=== PATIENT | male | born 1940 ===

== ENCOUNTER 2017-11-21 01:28 | Inpatient (IN) | payer OTHER, MEDICAID ==
[2017-11-21 02:38] LABS: BASO # 0.1 K/uL (0.0-0.2); BASO % 0.9 % (0.0-2.0); EOS # 0.5 K/uL (0.0-0.7); EOS % 9.5 % (0.0-4.0); HEMOGLOBIN 12.7 g/dL (12.0-18.0); LYMPH # 1.2 K/uL (1.0-4.3); LYMPH % 21.4 % (20.0-40.0); MEAN CELL VOLUME 93.2 fl (80.0-94.0); MEAN CORPUSCULAR HEMOGLOBIN 30.8 pg (27.0-31.0); MEAN CORPUSCULAR HGB CONC 33.1 g/dL (33.0-37.0); MEAN PLATELET VOLUME 10.1 fl (7.2-11.7); MONO # 0.5 K/uL (0.0-0.8); MONO % 8.1 % (0.0-10.0); NEUT # 3.4 K/uL (1.8-7.0); NEUT % 60.1 % (50.0-75.0); RBC 4.13 Mil/uL (4.40-5.90); RED CELL DISTRIBUTION WIDTH 13.8 % (11.5-14.5); WHITE BLOOD COUNT 5.7 K/uL (4.8-10.8)
[2017-11-21 02:54] LABS: ACETAMINOPHEN < 10.0 ug/ml (10.0-30.0); SALICYLATE < 1.0 mg/dl
[2017-11-21 02:55] LABS: BLOOD UREA NITROGEN 28 mg/dl (9-20); CALCIUM 9.4 mg/dL (8.4-10.2); GFR AFRICAN-AMERICAN > 60; GFR NON-AFRICAN AMERICAN 54
--- NOTE | 2017-11-21 03:20 | ED PDOC ---
HPI: Psych/Substance Abuse Time Seen by Provider: 11/21/17 01:38 Chief Complaint (Nursing): Altered Mental Status Chief Complaint (Provider): Psychiatric Evaluation History Per: EMS History/Exam Limitations: clinical condition (Patient has dementia) Suicide/Self Injury Attempted (Context): None Associated Symptoms: Agitation Additional History Per: Family () Additional Complaint(s): 76 year old male brought in by EMS presents to ED for aggressive behavior at home and has a past medical history of dementia. notes that she called EMS as patient was acting uncharacteristically aggressive. Of note, patient was recently discharged from a rehabilitation facility and recently had an adjustment in his psychiatric medication (unknown what changes were made). Patient is unable to provide further history at this time due to dementia. PCP: ELDA Past Medical History Reviewed: Historical Data, Nursing Documentation, Vital Signs Vital Signs: Last Vital Signs Temp 99.0 F 11/21/17 01:48 Pulse 61 11/21/17 02:04 Resp 15 11/21/17 02:04 BP 150/52 L 11/21/17 02:04 Pulse Ox 98 11/21/17 02:04 - Medical History PMH: Alzheimer's Disease, Dementia, HTN - Family History Family History: States: Unknown Family Hx - Living Arrangements Living Arrangements: With Family - Home Medications Home Medications: Ambulatory Orders Medication Instructions Recorded Aspirin [Ecotrin] 81 mg PO DAILY 11/21/17 Atorvastatin [Lipitor] 10 mg PO HS 11/21/17 Divalproex [Depakote DR(*BID*)] 125 mg PO BID 11/21/17 Docusate [Colace] 200 mg PO DAILY 11/21/17 Escitalopram [Lexapro] 10 mg PO HS 11/21/17 GlipiZIDE [Glucotrol] 5 mg PO BID 11/21/17 Memantine [Namenda] 10 mg PO Q12 11/21/17 Olmesartan/Hydrochlorothiazide 1 tab PO DAILY 11/21/17 [Olmesartan-Hctz 40-25 mg Tab] QUEtiapine [SEROquel] 50 mg PO DAILY 11/21/17 QUEtiapine [Seroquel] 100 mg PO HS 11/21/17 - Allergies Allergies/Adverse Reactions: Allergies Allergy/AdvReac Type Severity Reaction Status Date / Time No Known Allergies Allergy Verified 07/11/14 08:21 Review of Systems Review Of Systems: ROS cannot be obtained secondary to pt's inabilty to answer questions. (Patient has dementia) Physical Exam - Reviewed Nursing Documentation Reviewed: Yes Vital Signs Reviewed: Yes - Physical Exam Appears: Positive for: Non-toxic, No Acute Distress Head Exam: Positive for: ATRAUMATIC, NORMOCEPHALIC Skin: Positive for: Normal Color, Warm, Dry Eye Exam: Positive for: EOMI, Normal appearance, PERRL ENT: Positive for: Normal ENT Inspection Neck: Positive for: Normal, Painless ROM, Supple Cardiovascular/Chest: Positive for: Regular Rate, Rhythm. Negative for: Bradycardia Respiratory: Positive for: Normal Breath Sounds. Negative for: Respiratory Distress Gastrointestinal/Abdominal: Positive for: Normal Exam, Soft. Negative for: Tenderness Extremity: Positive for: Normal ROM. Negative for: Deformity Neurologic/Psych: Positive for: Alert. Negative for: Oriented (Confused but cooperative), Motor/Sensory Deficits - Laboratory Results Result Diagrams: 11/21/17 02:24 11/21/17 02:24 - ECG ECG: Positive for: Interpreted By Me, Viewed By Me ECG Rhythm: Positive for: Sinus Rhythm Interpretation Of Abn EKG: Flattening of T waves in inferior leads Rate: 64 O2 Sat by Pulse Oximetry: 98 (RA) Pulse Ox Interpretation: Normal Medical Decision Making Medical Decision Makin Initial impression: aggressive behavior at home possibly due to underlying dementia Patient well appearing, calm, coopeartive but confused, likely his baseline given dementia Initial plan: * EKG * Acetaminophen * EtOH serum * Labs * UDrug screen * Salicylate * CXR * UA 0300 Resting comfortably, no changes 0600 Crisis eval underway [address] Dennison pending crisis eval and urine studies. ~ Scribe Attestation: Documented by Jeimy Naylor, acting as a scribe for Jarad Paige MD. Provider Scribe Attestation: All medical record entries made by the Scribe were at my direction and personally dictated by me. I have reviewed the chart and agree that the record accurately reflects my personal performance of the history, physical exam, medical decision making, and the department course for this patient. I have also personally directed, reviewed, and agree with the discharge instructions and disposition. Disposition - Clinical Impression Clinical Impression: Agitation - Patient ED Disposition Is Patient to be Admitted: Transfer of Care - Disposition Disposition: Transfer of Care Disposition Time: 07:00 Condition: CRITICAL Forms: [facility] (Serbian) Patient Signed Over To: Ramo Dennison Handoff Comments: pending crisis eval and urine studies
[2017-11-21 07:07] LABS: SQUAMOUS EPITHIAL < 1 /hpf (0-5); URINE BILIRUBIN NEGATIVE (NEGATIVE); URINE BLOOD NEGATIVE (NEGATIVE); URINE CLARITY CLEAR (Clear); URINE COLOR STRAW (YELLOW); URINE GLUCOSE (UA) NEG (Normal); URINE LEUKOCYTE ESTERASE NEG Leu/uL (Negative); URINE PROTEIN NEGATIVE (NEGATIVE); URINE UROBILINOGEN 0.2-1.0 mg/dL (0.2-1.0)
--- NOTE | 2017-11-21 07:23 | ED PDOC ---
- Laboratory Results Result Diagrams: 11/21/17 02:24 11/21/17 02:24 - ECG O2 Sat by Pulse Oximetry: 98 (RA) Pulse Ox Interpretation: Normal - Progress ED Course And Treament: 1446: Stable. Crisis will admit pt. Medically stable for admit. Medical Decision Making Medical Decision Making: Time: 07 Patient signed out to me pending crisis eval and urine studies. 0902: Stable. Pending crisis eval. 1100: Pt. aggressive and threat to self and staff. Will restraint and give ativan/haldol. 1-1. Crisis will eval. Time: 925 CXR FINDINGS: LUNGS: Low-normal lung volumes -less than before. The chin and neck soft tissues obscure each lung apex. No interval consolidation or gross mass appreciated PLEURA: No significant pleural effusion identified, no pneumothorax apparent. CARDIOVASCULAR: Mild cardiomegaly Atherosclerotic vascular calcifications present. . Sternotomy and coronary artery bypass changes noted -sternal discontinuous wires renoted OSSEOUS STRUCTURES: Thoracic spondylosis VISUALIZED UPPER ABDOMEN: Normal. OTHER FINDINGS: None. IMPRESSION: No active disease. Time: 1400 Patient's family at bedside and report he has been complaining of right foot pain. Upon exam, no wounds noted to foot. No deformity, tenderness, ecchymosis, edema noted. DP Pulse 2+ bilaterally. Calf refill < 2 seconds. Scribe Attestation: Documented by Fiordaliza Slaughter acting as a scribe for Ramo Dennison MD Provider Attestation: All medical record entries made by the Scribe were at my direction and personally dictated by me. I have reviewed the chart and agree that the record accurately reflects my personal performance of the history, physical exam, medical decision making, and the department course for this patient. I have also personally directed, reviewed, and agree with the discharge instructions and disposition. Disposition - Clinical Impression Clinical Impression: Dementia - POA Present On Arrival: None - Disposition Disposition: Admitted as In-Patient Disposition Time: 14:00 Condition: FAIR
[2017-11-21 07:36] LABS: BARBITURATES, UR NEGATIVE (NEGATIVE); BENZODIAZEPINES, UR NEGATIVE (NEGATIVE); OPIATES, UR NEGATIVE (NEGATIVE); PHENCYCLIDINE, UR NEGATIVE (NEGATIVE)
--- NOTE | 2017-11-21 09:36 | RAD ---
HISTORY: aggressive behavior COMPARISON: 07/11/2014 FINDINGS: LUNGS: Low-normal lung volumes -less than before. The chin and neck soft tissues obscure each lung apex. No interval consolidation or gross mass appreciated PLEURA: No significant pleural effusion identified, no pneumothorax apparent. CARDIOVASCULAR: Mild cardiomegaly Atherosclerotic vascular calcifications present. . Sternotomy and coronary artery bypass changes noted -sternal discontinuous wires renoted OSSEOUS STRUCTURES: Thoracic spondylosis VISUALIZED UPPER ABDOMEN: Normal. OTHER FINDINGS: None. IMPRESSION: No active disease.
--- NOTE | 2017-11-21 09:49 | CARD ---
APPROVED REPORT EKG Measurement Heart [id number] <Conclusion> Normal sinus rhythm Inferior infarct, age undetermined Abnormal ECG
[2017-11-21] MEDS ORDERED: Magnesium Hydroxide Susp 30 ml UD PO PRN (17:26)
[2017-11-21] MEDS ORDERED: Alum-Mag Hydrox-Simethicone Susp (30 mL) PO PRN (17:26)
--- NOTE | 2017-11-21 18:09 | PCM.BM ---
<ManojstanislawVashti Tyrone - Last Filed: 11/21/17 18:07> Treatment Plan Problems - Problems identified on initial assessmt AGGRESSION Date Initiated: 11/21/17 Time Initiated: 18:08 Assessment reference: HP, PE, NA Status: Active Priority: 1 Treatment assets and liabiliti Patient Assests: good support system Patient Liabilities: medical problems, imparied memory, language/speech - Milieu Protocol Maintain good personal hygiene: every shift Encourage regular showers, every shift Remind patient to perform daily oral care, every shift Assist patient to perform ADL's Maintain personal safety: every shift Educate patient to report safety concerns to staff, every shift Monitor environment for contraband/sharps Medication safety: Monitor for expected outcome, potential side effects: every shift, Assess barriers to learning: every shift, Assess readiness for medication education: every shift Family Contact Family contact name: AVIS - Outside Agency [facility] Care involvment: Other Agency contact name: [phone] dR Crespo <Lisette Meek - Last Filed: 11/22/17 09:32> - Diagnosis (1) Dementia with behavioral disturbance Status: Acute Interventions: Medication management, Individual and group therapy, Psychoeducation 11/22/17 09:33 <Harika Burnette M - Last Filed: 11/22/17 15:12> Family Contact Family involvement: Family/SO is involved Family contact: Patient agrees to contact Family contact name: Avis - spouse and POA Family contacted how many times per week?: 2 Family contact comment: [phone] (cell). [phone] (home) - Outside Agency [facility] Care involvment: Following patient during stay, Information-sharing, Other Agency contact number: [phone] - Goals for Treatment Patient goals for treatment: Pt to be encouraged to attend activity and clinical groups 3-5x per week to identify at least 2 contributing factors to increased agitation, irritability, and aggression. Psycho-education to be provided to patient/family regarding benefits of medications and treatment adherence. Pt to be encouraged to participate in group milieu to develop effective coping skills to reduce aggression and reduce psychiatric hospitalizations. Coordinate discharge resource needs by providing referral for psychiatric treatment follow up in the community. Discharge/Continuing Care - Education Needs Education Needs: Family Medication, Family Diagnosis/Disease Process, Family Coping Skills, Family Anger Management skills, Family Placement options, Family Community resources, Family Activities of Daily Living, Family Uses of Medical Equipment, Family Personal Hygiene/Grooming, Family Aftercare Safety Plan, Patient Medication, Patient Diagnosis/Disease Process, Patient Coping Skills, Patient Anger Management skills, Patient Placement options, Patient Community resources, Patient Activities of Daily Living, Patient Uses of Medical Equipment , Patient Personal Hygiene/Grooming, Patient Aftercare Safety Plan - Discharge Discharge Criteria: Tolerates medication w/o severe side effects, Free of agitation, Normal sleep pattern, Ability to care for self, Reduction of target symptoms Discharge to:: With Family - Additional Comments 11/22/17 15:10 Pt discussed in team meeting. Pt refused to attend team meeting. Pt has a POA, Spouse (Avis). Pt's reason for hospitalization reviewed and discussed. Pt's medications reviewed. Pt's social and medical issues reviewed. Tx plan reviewed. Spouse to be contacted for collateral information. Tx plan reviewed. SW to continue to follow case. - Treatment Team Participation Discussed with Family/SO: No Was Patient/Family/SO present at Treatment Team Meeting: Yes
[2017-11-21] MEDS ORDERED: DiphenhydrAMINE 50 mg/ml Inj IM PRN (19:39)
[2017-11-21] MEDS: Divalproex 125 mg Sprinkle Capsule PO SCH (19:47)
[2017-11-22] MEDS ORDERED: DiphenhydrAMINE 50 mg/ml Inj IM SCH (01:00)
[2017-11-22 07:25] LABS: IRON 74 ug/dL (49-181)
[2017-11-22 07:39] LABS: % IRON SATURATION 23 % (20-55); TOTAL IRON BINDING CAPACITY 318 ug/dL (250-450)
[2017-11-22 07:42] LABS: T4 7.54 ug/dl (5.5-11.0)
[2017-11-22 07:59] LABS: FERRITIN 30.5 ng/Ml (17.9-464)
[2017-11-22] MEDS: Divalproex 125 mg Sprinkle Capsule PO SCH (08:44)
--- NOTE | 2017-11-22 09:33 | PCM.PSYCH ---
Initial Psychiatric Evaluation - Initial Psychiatric Evaluation Type of Admission: Voluntary Legal Status: DPOA Chief Complaint (in patient's own words): Worsening behavioral disturbances Patient's Reaction to Hospitalization: Patient is a poor historian due to cognitive impairment. History obtained from chart and patient's . HPI: 76 y/o male with a diagnosis of Dementia, BIB EMS to worsening aggressive behavior, throwing away his medications, collecting picture frames, not sleeping at night. In the ER he was acutely agitated requiring PRM medications and 4 point restraint. Refrigerator Car Icer spoke with patient's Avis Rockwell [phone] / [phone], who confirmed patient's aggressive behaviors. She believes that the Seroquel he took in the past made him worse. She gave senior writer permission to modify his medications as medically and psychiatrically indicated. PMHx/PPHx: DM, HLD, CAD, Constipation, Dementia; H/o admission to [facility] ALL: NKDA SHx: Lives w/ ; no acute drug/etoh abuse Current Medications: Active Medications Generic Name Dose Route Start Last Admin Trade Name Freq PRN Reason Stop Dose Admin Acetaminophen 650 mg 11/21/17 17:26 Tylenol 325mg Tab PO Q4 PRN Pain, moderate (4-7) Al Hydrox/Mg Hydrox/Simethicone 30 ml 11/21/17 17:26 Maalox Plus 30 Ml PO Q4 PRN Dyspepsia Diphenhydramine HCl 50 mg 11/21/17 19:38 11/21/17 23:43 Benadryl PO 50 mg Q8 PRN Administration for aggitation and anxiety Diphenhydramine HCl 50 mg 11/21/17 19:39 Benadryl IM Q8 PRN anxiety and aggitation Divalproex Sodium 250 mg 11/21/17 17:45 11/22/17 08:44 Depakote Sprinkles PO 250 mg BID CHRISTINE Administration Haloperidol 2 mg 11/21/17 17:36 Haldol PO Q8 PRN AGGITATION AND ANXIETY Haloperidol Lactate 2 mg 11/21/17 17:31 Haldol IM Q8 PRN anxiety and aggitation Lorazepam 1 mg 11/21/17 17:26 11/21/17 23:43 Ativan PO 12/06/17 01:01 1 mg Q8 PRN Administration Anixety/Agitation Lorazepam 1 mg 11/21/17 17:33 Ativan IM PRN PRN anxiety and AGGITATION Magnesium Hydroxide 30 ml 11/21/17 17:26 Milk Of Magnesia PO HS PRN Constipation Past Psychiatric History - Past Psychiatric History Pertinent Medical Hx (Current Medical&Sleep Prob, Allergies): Allergies Allergy/AdvReac Type Severity Reaction Status Date / Time No Known Allergies Allergy Verified 07/11/14 08:21 Aspirin [Ecotrin] 81 mg PO DAILY 11/21/17 Atorvastatin [Lipitor] 10 mg PO HS 11/21/17 Divalproex [Depakote DR(*BID*)] 125 mg PO BID 11/21/17 Docusate [Colace] 200 mg PO DAILY 11/21/17 Escitalopram [Lexapro] 10 mg PO HS 11/21/17 GlipiZIDE [Glucotrol] 5 mg PO BID 11/21/17 Memantine [Namenda] 10 mg PO Q12 11/21/17 Olmesartan/Hydrochlorothiazide [Olmesartan-Hctz 40-25 mg Tab] 1 tab PO DAILY QUEtiapine [SEROquel] 50 mg PO DAILY 11/21/17 QUEtiapine [Seroquel] 100 mg PO HS 11/21/17 Review of Systems - Psychiatric Psychiatric: As Per HPI, Abnormal Sleep Pattern, Behavioral Changes, Difficulty Concentrating, Memory Loss, Mood Swings Mental Status Examination - Personal Presentation Personal Presentation: Looks stated age - Affect Affect: Broad, Other (Inappropriately happy at times) - Motor Activity Motor Activity: Psychomotor Agitation - Reliability in Providing Information Reliability in Providing Information: Poor, due to cognitve impairment - Speech Speech: Disorganized, Irrelevant, Tangential - Mood Mood: Neutral - Formal Thought Process Formal Thought Process: Loosening of associations - Hallucinations/Delusions Additional comments: Denies AH/VH/paranoia - Obsessions/Compulsions Obsessions: No Compulsions: No - Cognitive Functions Orientation: Person Sensorium: Alert Attention/Concentration: Easily distracted Judgement: Imparied, as evidence by: Poor judgement, Imparied, as evidence by: Lack of insight into illness Memory: Recent impaired, as evidence by: Inability to recall events of the day, Recent imparied as evidence by:Inability to complete 3/3 object recall, Remote impaired as evidenced by: Inability to recall sig life events, Remote impaired as evidenced by: Inability to recall historical events - Risk Risk: Diminished functioning, Other (Aggresive towards others) - Strength & Assets Inventory Strength & Assets Inventory: Family support DSM 5 DX - DSM 5 DSM 5 Diagnosis: Dementia with behavioral disturbances - Recommended/Plan of Treatment Treatment Recommendations and Plan of Treatment: Dementia with behavioral disturbances -Admit to psychiatry unit -Case discussed w/ POA -Start Depakote; will check VPA level in 5 days -Will not restart Seroquel, as POA believe this caused worsening behavioral issues -Individual and group therapy -Medicine consult -Psychology consult -Disposition planning Projected ELOS: 5-10 days Discharge Plan and Discharge Criteria: Discharge when patient is psychiatrically stable
[2017-11-22] MEDS ORDERED: Divalproex 125 mg Sprinkle Capsule PO SCH (13:00)
--- NOTE | 2017-11-22 14:48 | CP.PCM.CON ---
History of Present Illness - History of Present Illness History of Present Illness: 76 y/o male with PMH of CABG, HTN, DM type II, dementia with behavioral problems , dyslipidemia brought to ER by EMS for crisis eval for aggressive behaviour. Patient is demented and unable to provide any history . As per patient has been more aggressive lately , not sleeping ,much and not taking his pills. Patient unable to provide any history due to advanced dementia. Allergies ; NKDA PMH ; CABG, HTN, DM type II, dementia with behavioral problems, dyslipidemia Medications; See med rec Surgery ; CABG Family history ; None Social history ; Lives with , no toxic habits ROS ; Unable to obtain since patient is severely demented Past Patient History - Tetanus Immunizations Tetanus Immunization: Unknown - Past Medical History & Family History Past Medical History?: Yes - Past Social History Smoking Status: Never Smoked Chewing Tobacco Use: No Cigar Use: No Alcohol: None Home Situation {Lives}: With Family Domestic Violence: Negative - CARDIAC Hx Cardiac Disorders: No Hx Hypertension: Yes - PULMONARY Hx Respiratory Disorders: No Hx Tuberculosis: No - NEUROLOGICAL Hx Neurological Disorder: Yes HX Cerebrovascular Accident: No Hx Dementia: Yes Hx Seizures: No - HEENT Hx HEENT Problems: No - RENAL Hx Chronic Kidney Disease: No - ENDOCRINE/METABOLIC Hx Diabetes Mellitus Type 2: Yes - HEMATOLOGICAL/ONCOLOGICAL Hx Blood Disorders: No Hx Cancer: No Hx Human Immunodeficiency Virus (HIV): No - INTEGUMENTARY Hx Dermatological Problems: No - MUSCULOSKELETAL/RHEUMATOLOGICAL Hx Musculoskeletal Disorders: No Hx Falls: No - GASTROINTESTINAL Hx Gastrointestinal Disorders: No - GENITOURINARY/GYNECOLOGICAL Hx Genitourinary Disorders: No Hx Sexually Transmitted Disorders: No - PSYCHIATRIC Hx Substance Use: No - SURGICAL HISTORY Hx Surgeries: Yes Other/Comment: Open heart surgery - ANESTHESIA Hx Anesthesia: Yes Hx Anesthesia Reactions: No Meds Allergies/Adverse Reactions: Allergies Allergy/AdvReac Type Severity Reaction Status Date / Time No Known Allergies Allergy Verified 07/11/14 08:21 - Medications Medications: Current Medications Acetaminophen (Tylenol 325mg Tab) 650 mg PO Q4 PRN PRN Reason: Pain, moderate (4-7) Al Hydrox/Mg Hydrox/Simethicone (Maalox Plus 30 Ml) 30 ml PO Q4 PRN PRN Reason: Dyspepsia Aspirin (Ecotrin) 81 mg PO DAILY CHRISTINE Last Admin: 11/22/17 13:39 Dose: 81 mg Atorvastatin Calcium (Lipitor) 10 mg PO HS [facility] Diphenhydramine HCl (Benadryl) 50 mg PO Q8 PRN PRN Reason: for aggitation and anxiety Last Admin: 11/21/17 23:43 Dose: 50 mg Diphenhydramine HCl (Benadryl) 50 mg IM Q8 PRN PRN Reason: anxiety and aggitation Divalproex Sodium (Depakote Dr(*Bid*)) 250 mg PO DAILY [facility] Divalproex Sodium (Depakote Dr(*Bid*)) 500 mg PO DAILY@1700 [facility] Docusate Sodium (Colace) 200 mg PO DAILY [facility] Last Admin: 11/22/17 13:39 Dose: 200 mg Donepezil HCl (Aricept) 5 mg PO HS [facility] Glipizide (Glucotrol) 5 mg PO BID [facility] Haloperidol Lactate (Haldol) 2 mg IM Q8 PRN PRN Reason: anxiety and aggitation Hydrochlorothiazide (Hydrodiuril) 25 mg PO DAILY [facility] Lorazepam (Ativan) 0.5 mg PO Q4 PRN PRN Reason: Agitation Lorazepam (Ativan) 1 mg IM Q6 PRN PRN Reason: Agitation Losartan Potassium (Cozaar) 100 mg PO DAILY [facility] Magnesium Hydroxide (Milk Of Magnesia) 30 ml PO HS PRN PRN Reason: Constipation Memantine (Namenda) 10 mg PO BID [facility] Last Admin: 11/22/17 13:39 Dose: 10 mg Risperidone (Risperdal M-Tab) 0.5 mg PO Q12 PRN PRN Reason: Agitation Trazodone HCl (Desyrel) 50 mg PO HS PRN PRN Reason: Insomnia Physical Exam - Constitutional Appears: Non-toxic, No Acute Distress, Other (demented) - Head Exam Head Exam: ATRAUMATIC, NORMAL INSPECTION, NORMOCEPHALIC - Eye Exam Eye Exam: EOMI, Normal appearance, PERRL Pupil Exam: NORMAL ACCOMODATION - ENT Exam ENT Exam: Mucous Membranes Moist, Normal Exam - Neck Exam Neck exam: Positive for: Normal Inspection - Respiratory Exam Respiratory Exam: Clear to Auscultation Bilateral, NORMAL BREATHING PATTERN. absent: Rales, Rhonchi, Wheezes - Cardiovascular Exam Cardiovascular Exam: REGULAR RHYTHM, RRR, +S1, +S2. absent: JVD - GI/Abdominal Exam GI & Abdominal Exam: Normal Bowel Sounds, Soft. absent: Distended, Guarding, Rebound, Tenderness - Rectal Exam Rectal Exam: Deferred - Extremities Exam Extremities exam: Positive for: normal capillary refill, normal inspection, pedal pulses present. Negative for: calf tenderness, pedal edema - Neurological Exam Neurological exam: Alert, CN II-XII Intact Additional comments: awake, demented ., moves all extremities, gait is stable - Psychiatric Exam Psychiatric exam: Agitated - Skin Skin Exam: Dry, Normal Color, Warm Results - Vital Signs Recent Vital Signs: Last Vital Signs Temp 97.1 F L 11/22/17 05:50 Pulse 64 11/22/17 05:50 Resp 19 11/22/17 05:50 BP 145/56 L 11/22/17 05:50 Pulse Ox 100 11/21/17 16:11 - Labs Result Diagrams: 11/21/17 02:24 11/21/17 02:24 Labs: Laboratory Results - last 24 hr 11/21/17 11/22/17 11/22/17 14:36 06:30 06:30 POC Glucose (mg/dL) 134 H Hemoglobin A1c Iron TIBC % Saturation Ferritin 30.5 Triglycerides 182 H Cholesterol 175 LDL Cholesterol Direct 93 HDL Cholesterol 33 Vitamin B12 638 Free T4 1.00 Thyroxine (T4) 7.54 TSH 3rd Generation 3.97 11/22/17 11/22/17 06:30 06:30 POC Glucose (mg/dL) Hemoglobin A1c 7.8 H D Iron 74 TIBC 318 % Saturation 23 Ferritin Triglycerides Cholesterol LDL Cholesterol Direct HDL Cholesterol Vitamin B12 Free T4 Thyroxine (T4) TSH 3rd Generation Assessment & Plan - Assessment and Plan (Free Text) Assessment: 76 y/o male with PMH of CABG, HTN, DM type II, dementia with behavioral problems , dyslipidemia brought to ER by EMS for crisis eval for aggressive behaviour. Patient is demented and unable to provide any history . As per patient has been more aggressive lately , not sleeping ,much and not taking his pills. Patient unable to provide any history due to advanced dementia. 1. Dementia with behavioral problems management as per psych TSH - wnl 2. DM type II controlled diabetic diet, accuchecks, lispro slinding sclae Resume Glucotrol Hgb A1c 7.8 3. HTN resume home meds 4. CAD s/p CABG continue statin , ASA , BP meds 5.Dyslipidemia on Statin 6. DVT prophylaxis ambulatory in unit
[2017-11-22] MEDS: Risperidone M tab 0.5MG PO PRN ×2 (15:10→15:12)
[2017-11-22] MEDS ORDERED: Divalproex 500 mg DR(BID formulation) PO SCH (17:00)
[2017-11-22 17:27] LABS: FOLATE 9.9 ng/mL
[2017-11-22] MEDS: Insulin Lispro (humaLOG) 100 Units/ml Inj SC SCH (22:49)
[2017-11-23] MEDS: Insulin Lispro (humaLOG) 100 Units/ml Inj SC SCH ×4 (09:00→22:40)
[2017-11-23] MEDS ORDERED: Divalproex 250 mg DR(BID formulation) PO SCH (09:00)
--- NOTE | 2017-11-23 15:19 | PCM.PYCHPN ---
Psychiatric Progress Note - Psychiatric Progress Note Patient seen today, length of contact: chart reviewed case discussed with team pt evaluated Patient Chief Complaint: pt is on one to one for behavioral issues, required prns during night, currently resting, pt seen by family, assisted with bathing, staff report may be cheeking rx/possible chewing of depakote tablets, pt is reported that at times trying to get out of unit, requires redirection Problems Identified/Issues Discussed: alteration in cognition alteration in safety Medical Problems: per chart, pt seen by hospitalist Diagnostic Results: per psychiatry' per medicine per nursing per social work per chart DSM 5 Symptoms Update: alteration in cognition, mood, behavior, safety Medication Change: Yes (depakote sprinkles 250mg po am and 500mg po hs) Medical Record Reviewed: Yes Consults ordered or reviewed: pt seen by hospitalist Mental Status Examination - Cognitive Function Memory: Impaired Attention: Poor Concentration: Poor Association: Loose Fund of Knowledge: Poor Decription of patient's judgement and insights: impaired - Mood Mood: Neutral - Affect Affect: Broad, Other (Inappropriately happy at times) - Formal Thought Process Formal Thought Process: Loosening of associations Goal/Treatment Plan - Goal/Treatment Plan Need for Continued Stay: Remain at risks for inpatient hospitalization, Failed transitioning, Severe functional impairment Progress Toward Problem(s) and Goals/Treatment Plan: inpt milieu vital signs and clinical observation per protocol and per status will re attempt depakote sprinkles for adherence 250mg po tid 1 to 1 for safety discharge planning in progress Estimated Date of D/C: 11/29/17 - Smoking Cessation Smoking Cessation Initiated: No
[2017-11-23] MEDS: Divalproex 125 mg Sprinkle Capsule PO SCH (19:19)
[2017-11-23] MEDS: Risperidone M tab 0.5MG PO PRN (19:19)
[2017-11-24] MEDS: Insulin Lispro (humaLOG) 100 Units/ml Inj SC SCH ×4 (08:32→21:11)
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
[2017-11-24] MEDS: Divalproex 125 mg Sprinkle Capsule PO SCH ×5 (12:19→19:45)
[2017-11-24] MEDS: Risperidone M tab 0.5MG PO SCH (21:01)
[2017-11-25] MEDS: Divalproex 125 mg Sprinkle Capsule PO SCH ×2 (08:42→18:44)
[2017-11-25] MEDS: Risperidone M tab 0.5MG PO SCH ×2 (08:50→21:08)
[2017-11-25] MEDS: Insulin Lispro (humaLOG) 100 Units/ml Inj SC SCH ×4 (08:55→22:17)
--- NOTE | 2017-11-25 09:27 | PCM.PYCHPN ---
Psychiatric Progress Note - Psychiatric Progress Note Patient seen today, length of contact: Patient evaluated, chart reviewed, case discussed with team Patient Chief Complaint: Worsening behavioral disturbances Problems Identified/Issues Discussed: Patient continues to have chronic memory deficits due to dementia. Over the weekend he had several incidents of agitation. He is currently calm w/ health technical writer , but continues to be labile and disoriented. Medication Change: Yes (Increase Depakote) Medical Record Reviewed: Yes Consults ordered or reviewed: Medicine consult Mental Status Examination - Cognitive Function Orientation: Person Memory: Impaired Attention: Poor Concentration: Poor Association: Loose Fund of Knowledge: Poor Decription of patient's judgement and insights: Poor I/J - Mood Mood: Neutral - Affect Affect: Other (Labile) - Formal Thought Process Formal Thought Process: Loosening of associations Psychotic Thoughts and Behaviors: No acute AH/VH/paranoia/delusions - Suicidal Ideation Suicidal Ideation: No - Homicidal Ideation Homicidal Ideation: No Goal/Treatment Plan - Goal/Treatment Plan Need for Continued Stay: Remain at risks for inpatient hospitalization, Discharge may exacerbated symptoms, Failed transitioning, Severe functional impairment Progress Toward Problem(s) and Goals/Treatment Plan: Dementia with behavioral disturbances -Increase Depakote; check VPA level -Continue Risperdal -Individual and group therapy -Medicine consult -Case discussed w/ patient's -Disposition planning Estimated Date of D/C: 11/29/17
--- NOTE | 2017-11-26 08:34 | PCM.PYCHPN ---
Psychiatric Progress Note - Psychiatric Progress Note Patient seen today, length of contact: Patient evaluated, chart reviewed, case discussed with team Patient Chief Complaint: Worsening behavioral disturbances Problems Identified/Issues Discussed: Patient continues to have periods of agitation and aggression and is difficult to redirect. He required PRN medication last night. He continues to be confused and disoriented as per his baseline due to dementia. Medication Change: Yes (Increase Risperdal) Medical Record Reviewed: Yes Consults ordered or reviewed: Medicine consult Mental Status Examination - Cognitive Function Orientation: Person Memory: Impaired Attention: Poor Concentration: Poor Association: Loose Fund of Knowledge: Poor Decription of patient's judgement and insights: Poor I/J - Mood Mood: Neutral - Affect Affect: Other (Labile) - Formal Thought Process Formal Thought Process: Loosening of associations Psychotic Thoughts and Behaviors: No acute AH/VH/paranoia/delusions - Suicidal Ideation Suicidal Ideation: No - Homicidal Ideation Homicidal Ideation: No Goal/Treatment Plan - Goal/Treatment Plan Need for Continued Stay: Remain at risks for inpatient hospitalization, Discharge may exacerbated symptoms, Failed transitioning, Severe functional impairment Progress Toward Problem(s) and Goals/Treatment Plan: Dementia with behavioral disturbances -Continue Depakote; check VPA level -Increase Risperdal -Individual and group therapy -Medicine consult -Case discussed w/ patient's -Disposition planning Estimated Date of D/C: 11/29/17
[2017-11-26] MEDS: Insulin Lispro (humaLOG) 100 Units/ml Inj SC SCH ×4 (08:42→21:04)
[2017-11-26] MEDS: Divalproex 125 mg Sprinkle Capsule PO SCH ×2 (11:29→16:13)
[2017-11-26] MEDS: Risperidone M tab 0.5MG PO SCH ×3 (11:32→19:51)
--- NOTE | 2017-11-27 08:24 | PCM.PYCHPN ---
Psychiatric Progress Note - Psychiatric Progress Note Patient seen today, length of contact: Patient evaluated, chart reviewed, case discussed with team Patient Chief Complaint: Worsening behavioral disturbances Problems Identified/Issues Discussed: Patient continues to have periods of agitation and aggression and is difficult to redirect. He required PRN medication last night. He continues to be confused and disoriented as per his baseline due to dementia. We have been unable to check VPA level due to acute agitation, will continues to try to check blood work. No adverse effects reported or observed at this time. Medication Change: No Medical Record Reviewed: Yes Consults ordered or reviewed: Medicine consult Mental Status Examination - Cognitive Function Orientation: Person Memory: Impaired Attention: Poor Concentration: Poor Association: Loose Fund of Knowledge: Poor Decription of patient's judgement and insights: Poor I/J - Mood Mood: Neutral - Affect Affect: Other (Labile) - Formal Thought Process Formal Thought Process: Loosening of associations Psychotic Thoughts and Behaviors: No acute AH/VH/paranoia/delusions - Suicidal Ideation Suicidal Ideation: No - Homicidal Ideation Homicidal Ideation: No Goal/Treatment Plan - Goal/Treatment Plan Need for Continued Stay: Remain at risks for inpatient hospitalization, Discharge may exacerbated symptoms, Failed transitioning, Severe functional impairment Progress Toward Problem(s) and Goals/Treatment Plan: Dementia with behavioral disturbances -Continue Depakote; check VPA level -Continue Risperdal -1:1 for safety -Individual and group therapy -Medicine consult -Case discussed w/ patient's -Disposition planning Estimated Date of D/C: 11/29/17
[2017-11-27] MEDS: Insulin Lispro (humaLOG) 100 Units/ml Inj SC SCH ×4 (08:55→23:09)
[2017-11-27] MEDS: Divalproex 125 mg Sprinkle Capsule PO SCH ×2 (11:10→16:57)
[2017-11-27] MEDS: Risperidone M tab 1 MG PO SCH (16:59)
[2017-11-27] MEDS ORDERED: Risperidone M tab 0.5MG PO SCH (22:00)
[2017-11-28] MEDS: Divalproex 125 mg Sprinkle Capsule PO SCH ×3 (08:48→16:48)
[2017-11-28] MEDS: Insulin Lispro (humaLOG) 100 Units/ml Inj SC SCH ×4 (08:51→23:30)
--- NOTE | 2017-11-28 09:59 | PCM.PYCHPN ---
Psychiatric Progress Note - Psychiatric Progress Note Patient seen today, length of contact: Patient evaluated, chart reviewed, case discussed with team Patient Chief Complaint: Worsening behavioral disturbances Problems Identified/Issues Discussed: Patient continues to have periods of agitation and aggression and is difficult to redirect at times. He required PRN medication last night. He continues to be confused and disoriented as per his baseline due to dementia. VPA level was 40.2 on 11/27/17. No adverse effects reported or observed at this time. Diagnostic Results: VPA 40.2 on 11/27/17 Medication Change: Yes (Increase Depakote; Increase Risperdal) Medical Record Reviewed: Yes Consults ordered or reviewed: Medicine consult Mental Status Examination - Cognitive Function Orientation: Person Memory: Impaired Attention: Poor Concentration: Poor Association: Loose Fund of Knowledge: Poor Decription of patient's judgement and insights: Poor I/J - Mood Mood: Neutral - Affect Affect: Other (Labile) - Formal Thought Process Formal Thought Process: Loosening of associations Psychotic Thoughts and Behaviors: No acute AH/VH/paranoia/delusions - Suicidal Ideation Suicidal Ideation: No - Homicidal Ideation Homicidal Ideation: No Goal/Treatment Plan - Goal/Treatment Plan Need for Continued Stay: Remain at risks for inpatient hospitalization, Discharge may exacerbated symptoms, Failed transitioning, Severe functional impairment Progress Toward Problem(s) and Goals/Treatment Plan: Dementia with behavioral disturbances -Increase Depakote; VPA 40.2 on 11/27/17 -Increase Risperdal -1:1 for safety -Individual and group therapy -Medicine consult -Case discussed w/ patient's -Disposition planning Estimated Date of D/C: 12/03/17
[2017-11-28] MEDS: Risperidone M tab 1 MG PO SCH (16:51)
[2017-11-28] MEDS ORDERED: Risperidone M tab 1 MG PO SCH (22:00)
[2017-11-29] MEDS: Insulin Lispro (humaLOG) 100 Units/ml Inj SC SCH ×4 (09:27→21:02)
--- NOTE | 2017-11-29 11:54 | PCM.PYCHPN ---
Psychiatric Progress Note - Psychiatric Progress Note Patient seen today, length of contact: Patient evaluated, chart reviewed, case discussed with team Patient Chief Complaint: Worsening behavioral disturbances Problems Identified/Issues Discussed: Patient continues to have periods of agitation and aggression. He required PRN medication last night. He continues to be confused and disoriented as per his baseline due to dementia. No adverse effects reported or observed at this time. Diagnostic Results: VPA 40.2 on 11/27/17 Medication Change: Yes (Ativan 0.5 mg PO HS) Medical Record Reviewed: Yes Consults ordered or reviewed: Medicine consult Mental Status Examination - Cognitive Function Orientation: Person Memory: Impaired Attention: Poor Concentration: Poor Association: Loose Fund of Knowledge: Poor Decription of patient's judgement and insights: Poor I/J - Mood Mood: Neutral - Affect Affect: Other (Labile) - Formal Thought Process Formal Thought Process: Loosening of associations Psychotic Thoughts and Behaviors: No acute AH/VH/paranoia/delusions - Suicidal Ideation Suicidal Ideation: No - Homicidal Ideation Homicidal Ideation: No Goal/Treatment Plan - Goal/Treatment Plan Need for Continued Stay: Remain at risks for inpatient hospitalization, Discharge may exacerbated symptoms, Failed transitioning, Severe functional impairment Progress Toward Problem(s) and Goals/Treatment Plan: Dementia with behavioral disturbances -Continue Depakote; VPA 40.2 on 11/27/17 -Continue Risperdal -Ativan 0.5 mg PO HS -1:1 for safety -Individual and group therapy -Medicine consult -Case discussed w/ patient's -Disposition planning Estimated Date of D/C: 12/03/17
--- NOTE | 2017-11-29 15:45 | PCM.BM ---
Treatment Plan Problems - Problems identified on initial assessmt AGGRESSION Date Initiated: 11/21/17 Time Initiated: 18:08 Assessment reference: HP, PE, NA Status: Active Priority: 1 Treatment assets and liabiliti Patient Assests: good support system Patient Liabilities: medical problems, imparied memory, language/speech - Milieu Protocol Maintain good personal hygiene: every shift Encourage regular showers, every shift Remind patient to perform daily oral care, every shift Assist patient to perform ADL's Maintain personal safety: every shift Educate patient to report safety concerns to staff, every shift Monitor environment for contraband/sharps Medication safety: Monitor for expected outcome, potential side effects: every shift, Assess barriers to learning: every shift, Assess readiness for medication education: every shift Milieu Narrative: Dementia with behavioral disturbances -Continue Depakote; VPA 40.2 on 11/27/17 -Continue Risperdal -Ativan 0.5 mg PO HS -1:1 for safety -Individual and group therapy -Medicine consult -Case discussed w/ patient's -Disposition planning Family Contact Family involvement: Family/SO is involved Family contact: Patient agrees to contact, Family has been contacted by patient , Telephone contact initiated by staff Family contact name: Avis - spouse & POA Family contacted how many times per week?: 2 Family contact comment: [phone] (cell). [phone] (home) - Outside Agency [facility] Care involvment: Following patient during stay, Information-sharing Agency contact name: [phone] [facility] Agency contact number: [phone] - Goals for Treatment Patient goals for treatment: Pt unable to state goal due to cognitive impairment. Discharge/Continuing Care - Education Needs Education Needs: Family Medication, Family Diagnosis/Disease Process, Family Coping Skills, Family Anger Management skills, Family Placement options, Family Community resources, Family Activities of Daily Living, Family Uses of Medical Equipment, Family Personal Hygiene/Grooming, Family Aftercare Safety Plan, Patient Medication, Patient Diagnosis/Disease Process, Patient Coping Skills, Patient Anger Management skills, Patient Placement options, Patient Community resources, Patient Activities of Daily Living, Patient Uses of Medical Equipment , Patient Personal Hygiene/Grooming, Patient Aftercare Safety Plan - Discharge Discharge Criteria: Tolerates medication w/o severe side effects, Free of agitation, Normal sleep pattern, Ability to care for self, Reduction of target symptoms Discharge to:: With Family - Additional Comments 11/22/17 15:10 Pt discussed in team meeting. Pt refused to attend team meeting. Pt has a POA, Spouse (Avis). Pt's reason for hospitalization reviewed and discussed. Pt's medications reviewed. Pt's social and medical issues reviewed. Tx plan reviewed. Spouse to be contacted for collateral information. Tx plan reviewed. SW to continue to follow case. - Treatment Team Participation Patient/Family/SO Statement: Dementia with behavioral disturbances -Continue Depakote; VPA 40.2 on 11/27/17 -Continue Risperdal -Ativan 0.5 mg PO HS -1:1 for safety -Individual and group therapy -Medicine consult -Case discussed w/ patient's -Disposition planning Discussed with Family/SO: No Was Patient/Family/SO present at Treatment Team Meeting: Yes Treatment Plan Review - Problem AGGRESSION Time Initiated: 18:08 - Discharge / Continuing Care Discharge to:: [facility]: Other (Pt unable to participate in team. Behaviors and mood are still being stabilized with medications, yet due to the advanced nature of pt's dementia it is doubtful that much improvement will be obtained. Pt to be referred to [facility] on a locked unit next week. )
[2017-11-29] MEDS: Divalproex 125 mg Sprinkle Capsule PO SCH (17:45)
[2017-11-29] MEDS: Risperidone M TAB 2 MG PO SCH (21:01)
[2017-11-30] MEDS: Insulin Lispro (humaLOG) 100 Units/ml Inj SC SCH ×3 (09:03→21:26)
[2017-11-30] MEDS: Divalproex 125 mg Sprinkle Capsule PO SCH ×2 (09:06→13:49)
--- NOTE | 2017-11-30 10:26 | PCM.PYCHPN ---
Psychiatric Progress Note - Psychiatric Progress Note Patient seen today, length of contact: Patient evaluated, chart reviewed, case discussed with team Patient Chief Complaint: Worsening behavioral disturbances Problems Identified/Issues Discussed: Patient continues to have periods of agitation and aggression. He required PRN medication last night. No adverse effects reported or observed at this time. Diagnostic Results: VPA 40.2 on 11/27/17 Medication Change: Yes (Increase Ativan) Medical Record Reviewed: Yes Consults ordered or reviewed: Medicine consult Mental Status Examination - Cognitive Function Orientation: Person Memory: Impaired Attention: Poor Concentration: Poor Association: Loose Fund of Knowledge: Poor Decription of patient's judgement and insights: Poor I/J - Mood Mood: Neutral - Affect Affect: Other (Labile) - Formal Thought Process Formal Thought Process: Loosening of associations Psychotic Thoughts and Behaviors: No acute AH/VH/paranoia/delusions - Suicidal Ideation Suicidal Ideation: No - Homicidal Ideation Homicidal Ideation: No Goal/Treatment Plan - Goal/Treatment Plan Need for Continued Stay: Remain at risks for inpatient hospitalization, Discharge may exacerbated symptoms, Failed transitioning, Severe functional impairment Progress Toward Problem(s) and Goals/Treatment Plan: Dementia with behavioral disturbances -Continue Depakote; VPA 40.2 on 11/27/17 -Continue Risperdal -Increase Ativan to 1 mg PO HS -1:1 for safety -Individual and group therapy -Medicine consult -Case discussed w/ patient's -Disposition planning Estimated Date of D/C: 12/03/17
[2017-11-30] MEDS: Risperidone M TAB 2 MG PO SCH (21:21)
[2017-12-01] MEDS: Divalproex 125 mg Sprinkle Capsule PO SCH ×4 (08:04→16:43)
[2017-12-01] MEDS: Insulin Lispro (humaLOG) 100 Units/ml Inj SC SCH ×4 (08:07→16:44)
--- NOTE | 2017-12-01 11:19 | PCM.PYCHPN ---
Psychiatric Progress Note - Psychiatric Progress Note Patient seen today, length of contact: Patient evaluated, chart reviewed, case discussed with team Patient Chief Complaint: Worsening behavioral disturbances Problems Identified/Issues Discussed: Patient continues to have periods of agitation and aggression. He continues to require PRN medications for acute agitation. No adverse effects reported or observed at this time. Diagnostic Results: VPA 40.2 on 11/27/17 Medication Change: Yes (Switch Ativan to Klonopin HS) Medical Record Reviewed: Yes Consults ordered or reviewed: Medicine consult Mental Status Examination - Cognitive Function Orientation: Person Memory: Impaired Attention: Poor Concentration: Poor Association: Loose Fund of Knowledge: Poor Decription of patient's judgement and insights: Poor I/J - Mood Mood: Neutral - Affect Affect: Other (Labile) - Formal Thought Process Formal Thought Process: Loosening of associations Psychotic Thoughts and Behaviors: No acute AH/VH/paranoia/delusions - Suicidal Ideation Suicidal Ideation: No - Homicidal Ideation Homicidal Ideation: No Goal/Treatment Plan - Goal/Treatment Plan Need for Continued Stay: Remain at risks for inpatient hospitalization, Discharge may exacerbated symptoms, Failed transitioning, Severe functional impairment Progress Toward Problem(s) and Goals/Treatment Plan: Dementia with behavioral disturbances -Continue Depakote; VPA 40.2 on 11/27/17 -Continue Risperdal -Switch Ativan to Klonopin HS -1:1 for safety -Individual and group therapy -Medicine consult -Case discussed w/ patient's -Disposition planning Estimated Date of D/C: 12/05/17
[2017-12-01] MEDS: Risperidone M TAB 2 MG PO SCH (21:02)
[2017-12-02] MEDS: Insulin Lispro (humaLOG) 100 Units/ml Inj SC SCH ×4 (09:31→21:19)
--- NOTE | 2017-12-02 11:40 | PCM.PYCHPN ---
Psychiatric Progress Note - Psychiatric Progress Note Patient seen today, length of contact: Patient evaluated, chart reviewed, case discussed with team Patient Chief Complaint: Behavioral disturbances Problems Identified/Issues Discussed: Patient has less behavioral disturbances. He continues to need redirection from staff due to chronic cognitive impairment. No adverse effects reported or observed at this time. Diagnostic Results: VPA 40.2 on 11/27/17 Medication Change: No Medical Record Reviewed: Yes Consults ordered or reviewed: Medicine consult Mental Status Examination - Cognitive Function Orientation: Person Memory: Impaired Attention: Poor Concentration: Poor Association: Loose Fund of Knowledge: Poor Decription of patient's judgement and insights: Poor I/J - Mood Mood: Neutral - Affect Affect: Constricted - Formal Thought Process Formal Thought Process: Loosening of associations Psychotic Thoughts and Behaviors: No acute AH/VH/paranoia/delusions - Suicidal Ideation Suicidal Ideation: No - Homicidal Ideation Homicidal Ideation: No Goal/Treatment Plan - Goal/Treatment Plan Need for Continued Stay: Remain at risks for inpatient hospitalization, Discharge may exacerbated symptoms, Failed transitioning, Severe functional impairment Progress Toward Problem(s) and Goals/Treatment Plan: Dementia with behavioral disturbances -Continue Depakote; VPA 40.2 on 11/27/17 -Continue Risperdal -Continue Klonopin -1:1 for safety -Individual and group therapy -Medicine consult -Case discussed w/ patient's -Disposition planning Estimated Date of D/C: 12/05/17
[2017-12-02] MEDS: Divalproex 125 mg Sprinkle Capsule PO SCH ×3 (16:34→16:37)
[2017-12-02] MEDS: Risperidone M TAB 2 MG PO SCH (23:29)
[2017-12-03] MEDS: Divalproex 125 mg Sprinkle Capsule PO SCH ×3 (08:53→21:01)
[2017-12-03] MEDS: Insulin Lispro (humaLOG) 100 Units/ml Inj SC SCH ×4 (08:54→21:02)
--- NOTE | 2017-12-03 09:35 | PCM.PYCHPN ---
Psychiatric Progress Note - Psychiatric Progress Note Patient seen today, length of contact: Patient evaluated, chart reviewed, case discussed with team Patient Chief Complaint: Behavioral disturbances Problems Identified/Issues Discussed: Patient has been in better behavioral control. He has been overly sleepy during the way, so will attempt to taper medications to see if patient can continues to have improved behavioral control at lower doses. No adverse effects reported or observed at this time. Diagnostic Results: VPA 40.2 on 11/27/17 Medication Change: Yes (Adrienne Travis and Riszechariahdal) Medical Record Reviewed: Yes Consults ordered or reviewed: Medicine consult Mental Status Examination - Cognitive Function Orientation: Person Memory: Impaired Attention: Poor Concentration: Poor Association: Loose Fund of Knowledge: Poor Decription of patient's judgement and insights: Poor I/J - Mood Mood: Neutral - Affect Affect: Constricted - Formal Thought Process Formal Thought Process: Loosening of associations Psychotic Thoughts and Behaviors: No acute AH/VH/paranoia/delusions - Suicidal Ideation Suicidal Ideation: No - Homicidal Ideation Homicidal Ideation: No Goal/Treatment Plan - Goal/Treatment Plan Need for Continued Stay: Remain at risks for inpatient hospitalization, Discharge may exacerbated symptoms, Failed transitioning, Severe functional impairment Progress Toward Problem(s) and Goals/Treatment Plan: Dementia with behavioral disturbances -Continue Depakote; VPA 40.2 on 11/27/17 -Adrienne Travis and Kodydal -1:1 for safety -Individual and group therapy -Medicine consult -Case discussed w/ patient's -Disposition planning Estimated Date of D/C: 12/05/17
[2017-12-04] MEDS: Insulin Lispro (humaLOG) 100 Units/ml Inj SC SCH ×4 (08:10→21:02)
--- NOTE | 2017-12-04 08:57 | PCM.PYCHPN ---
Psychiatric Progress Note - Psychiatric Progress Note Patient seen today, length of contact: Patient evaluated, chart reviewed, case discussed with team Patient Chief Complaint: Behavioral disturbances; now improved Problems Identified/Issues Discussed: Patient is at his baseline of functioning. No acute behavioral disturbance or PRN medications needed. Patient continues to have chronic deficits due to dementia. No adverse effects reported or observed at this time. Diagnostic Results: VPA 40.2 on 11/27/17 Medication Change: No Medical Record Reviewed: Yes Consults ordered or reviewed: Medicine consult Mental Status Examination - Cognitive Function Orientation: Person Memory: Impaired Attention: Poor Concentration: Poor Association: Loose Fund of Knowledge: Poor Decription of patient's judgement and insights: Poor I/J - Mood Mood: Neutral - Affect Affect: Constricted - Formal Thought Process Formal Thought Process: Loosening of associations Psychotic Thoughts and Behaviors: No acute AH/VH/paranoia/delusions - Suicidal Ideation Suicidal Ideation: No - Homicidal Ideation Homicidal Ideation: No Goal/Treatment Plan - Goal/Treatment Plan Need for Continued Stay: Severe functional impairment Progress Toward Problem(s) and Goals/Treatment Plan: Dementia with behavioral disturbances, now improved; patient is at his baseline of functioning and 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 -Continue Depakote; VPA 40.2 on 11/27/17 -Continue Klonopin and Risperdal -Individual and group therapy -Medicine consult -Case discussed w/ patient's -Disposition planning Estimated Date of D/C: 12/09/17
[2017-12-04] MEDS: Divalproex 125 mg Sprinkle Capsule PO SCH ×2 (12:14→21:01)
[2017-12-05] MEDS: Insulin Lispro (humaLOG) 100 Units/ml Inj SC SCH ×4 (08:55→21:02)
--- NOTE | 2017-12-05 09:21 | PCM.PYCHPN ---
Psychiatric Progress Note - Psychiatric Progress Note Patient seen today, length of contact: Patient evaluated, chart reviewed, case discussed with team Patient Chief Complaint: Behavioral disturbances; now improved Problems Identified/Issues Discussed: No new events. Patient is at his baseline of functioning. No acute behavioral disturbance or PRN medications needed. Patient continues to have chronic deficits due to dementia. No adverse effects reported or observed at this time. Diagnostic Results: VPA 40.2 on 11/27/17 Medication Change: No Medical Record Reviewed: Yes Consults ordered or reviewed: Medicine consult Mental Status Examination - Cognitive Function Orientation: Person Memory: Impaired Attention: Poor Concentration: Poor Association: Loose Fund of Knowledge: Poor Decription of patient's judgement and insights: Poor I/J - Mood Mood: Neutral - Affect Affect: Constricted - Formal Thought Process Formal Thought Process: Loosening of associations Psychotic Thoughts and Behaviors: No acute AH/VH/paranoia/delusions - Suicidal Ideation Suicidal Ideation: No - Homicidal Ideation Homicidal Ideation: No Goal/Treatment Plan - Goal/Treatment Plan Need for Continued Stay: Severe functional impairment Progress Toward Problem(s) and Goals/Treatment Plan: Dementia with behavioral disturbances, now improved; patient is at his baseline of functioning and is psychiatrically stable for 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 -Continue Depakote; VPA 40.2 on 11/27/17 -Continue Klonopin and Risperdal -Individual and group therapy -Medicine consult -Case discussed w/ patient's -Disposition planning Estimated Date of D/C: 12/09/17
[2017-12-05] MEDS: Divalproex 125 mg Sprinkle Capsule PO SCH ×2 (17:32→21:01)
[2017-12-06] MEDS: Insulin Lispro (humaLOG) 100 Units/ml Inj SC SCH ×4 (08:20→22:27)
--- NOTE | 2017-12-06 09:17 | PCM.PYCHPN ---
Psychiatric Progress Note - Psychiatric Progress Note Patient seen today, length of contact: Patient evaluated, chart reviewed, case discussed with team Patient Chief Complaint: Behavioral disturbances; now improved Problems Identified/Issues Discussed: No new events overnight. Patient is at his baseline of functioning. No acute behavioral disturbance or PRN medications needed. Patient continues to have chronic deficits due to dementia. No adverse effects reported or observed at this time. Diagnostic Results: VPA 40.2 on 11/27/17 Medication Change: No Medical Record Reviewed: Yes Consults ordered or reviewed: Medicine consult Mental Status Examination - Cognitive Function Orientation: Person Memory: Impaired Attention: Poor Concentration: Poor Association: Loose Fund of Knowledge: Poor Decription of patient's judgement and insights: Poor I/J - Mood Mood: Neutral - Affect Affect: Constricted - Formal Thought Process Formal Thought Process: Loosening of associations Psychotic Thoughts and Behaviors: No acute AH/VH/paranoia/delusions - Suicidal Ideation Suicidal Ideation: No - Homicidal Ideation Homicidal Ideation: No Goal/Treatment Plan - Goal/Treatment Plan Need for Continued Stay: Severe functional impairment Progress Toward Problem(s) and Goals/Treatment Plan: Dementia with behavioral disturbances, now improved; patient is at his baseline of functioning and is psychiatrically stable 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 -Continue Depakote; VPA 40.2 on 11/27/17 -Continue Klonopin and Risperdal -Individual and group therapy -Medicine consult -Case discussed w/ patient's -Disposition planning Estimated Date of D/C: 12/09/17
[2017-12-06] MEDS: Divalproex 125 mg Sprinkle Capsule PO SCH ×2 (12:18→21:03)
[2017-12-07 06:04] VITALS: O2SAT 19
[2017-12-07] MEDS: Insulin Lispro (humaLOG) 100 Units/ml Inj SC SCH ×4 (08:43→21:06)
--- NOTE | 2017-12-07 11:01 | PCM.PYCHPN ---
Psychiatric Progress Note - Psychiatric Progress Note Patient seen today, length of contact: Patient evaluated, chart reviewed, case discussed with team Patient Chief Complaint: pt has been less agitated and improving with no changes in mood and reaching his baseline tolerating meds well pt 's is c/o pt being sleeping all day and wants his meds decreased and pt becoming very agitated when pt is being washed and she appears to be in some denial regarding his behavioral agitation due to dementia. Medication Change: No Medical Record Reviewed: Yes Mental Status Examination - Cognitive Function Orientation: Person Memory: Impaired Attention: Poor Concentration: Poor Association: Loose Fund of Knowledge: Poor - Mood Mood: Neutral - Affect Affect: Constricted - Formal Thought Process Formal Thought Process: Loosening of associations - Suicidal Ideation Suicidal Ideation: No - Homicidal Ideation Homicidal Ideation: No Goal/Treatment Plan - Goal/Treatment Plan Need for Continued Stay: Severe functional impairment Progress Toward Problem(s) and Goals/Treatment Plan: will continue to stabilize pt and engage pt in therapy D/c planning as per dr alfaro Estimated Date of D/C: 12/09/17
[2017-12-07] MEDS: Divalproex 125 mg Sprinkle Capsule PO SCH ×2 (13:00→21:05)
[2017-12-08] MEDS: Insulin Lispro (humaLOG) 100 Units/ml Inj SC SCH ×5 (08:45→22:01)
[2017-12-08] MEDS: Divalproex 125 mg Sprinkle Capsule PO SCH ×2 (13:47→22:05)
--- NOTE | 2017-12-08 17:13 | PCM.PYCHPN ---
Psychiatric Progress Note - Psychiatric Progress Note Patient seen today, length of contact: Patient evaluated, chart reviewed, case discussed with team Patient Chief Complaint: pt has been less agitated except once when he got upset with the nurse but able tobcalm down and improving with no changes in mood and reaching her baseline tolerating meds well Medication Change: No Medical Record Reviewed: Yes Mental Status Examination - Cognitive Function Orientation: Person Memory: Impaired Attention: Poor Concentration: Poor Association: Loose Fund of Knowledge: Poor - Mood Mood: Neutral - Affect Affect: Constricted - Formal Thought Process Formal Thought Process: Loosening of associations - Suicidal Ideation Suicidal Ideation: No - Homicidal Ideation Homicidal Ideation: No Goal/Treatment Plan - Goal/Treatment Plan Need for Continued Stay: Severe functional impairment Progress Toward Problem(s) and Goals/Treatment Plan: will continue to stabilize pt and engage pt in therapy D/c planning as per dr alfaro Estimated Date of D/C: 12/09/17
--- NOTE | 2017-12-09 09:17 | PCM.PYCHPN ---
Psychiatric Progress Note - Psychiatric Progress Note Patient seen today, length of contact: Patient evaluated, chart reviewed, case discussed with team Patient Chief Complaint: Behavioral disturbances; now improved Problems Identified/Issues Discussed: No new events. Patient is at his baseline of functioning. No acute behavioral disturbance or PRN medications needed. Patient continues to have chronic deficits due to dementia. No adverse effects reported or observed at this time. Diagnostic Results: VPA 40.2 on 11/27/17 Medication Change: No Medical Record Reviewed: Yes Consults ordered or reviewed: Medicine consult Mental Status Examination - Cognitive Function Orientation: Person Memory: Impaired Attention: Poor Concentration: Poor Association: Loose Fund of Knowledge: Poor Decription of patient's judgement and insights: Chronic poor I/J due to dementia - Mood Mood: Neutral - Affect Affect: Constricted - Formal Thought Process Formal Thought Process: Loosening of associations Psychotic Thoughts and Behaviors: No AH/VH/paranoia - Suicidal Ideation Suicidal Ideation: No - Homicidal Ideation Homicidal Ideation: No Goal/Treatment Plan - Goal/Treatment Plan Need for Continued Stay: Severe functional impairment Progress Toward Problem(s) and Goals/Treatment Plan: Dementia with behavioral disturbances, now improved; patient is at his baseline of functioning and is psychiatrically stable for referral for [facility] placement. -Continue Depakote; VPA 40.2 on 11/27/17 -Continue Klonopin and Risperdal -Individual and group therapy -Medicine consult -Case discussed w/ patient's -Disposition planning Estimated Date of D/C: 12/10/17
[2017-12-09] MEDS: Insulin Lispro (humaLOG) 100 Units/ml Inj SC SCH ×4 (09:37→21:17)
[2017-12-09] MEDS: Divalproex 125 mg Sprinkle Capsule PO SCH ×2 (14:25→21:16)
[2017-12-10] MEDS: Insulin Lispro (humaLOG) 100 Units/ml Inj SC SCH ×4 (08:08→21:11)
--- NOTE | 2017-12-10 08:48 | PCM.PYCHPN ---
Psychiatric Progress Note - Psychiatric Progress Note Patient seen today, length of contact: Patient evaluated, chart reviewed, case discussed with team Patient Chief Complaint: Behavioral disturbances; now improved Problems Identified/Issues Discussed: No new events overnight. No 1:1 needed. Patient is at his baseline of functioning. No acute behavioral disturbance or PRN medications needed. Patient continues to have chronic deficits due to dementia. No adverse effects reported or observed at this time. Diagnostic Results: VPA 40.2 on 11/27/17 Medication Change: No Medical Record Reviewed: Yes Consults ordered or reviewed: Medicine consult Mental Status Examination - Cognitive Function Orientation: Person Memory: Impaired Attention: Poor Concentration: Poor Association: Loose Fund of Knowledge: Poor Decription of patient's judgement and insights: Chronic poor I/J due to dementia - Mood Mood: Neutral - Affect Affect: Constricted - Formal Thought Process Formal Thought Process: Loosening of associations Psychotic Thoughts and Behaviors: No AH/VH/paranoia - Suicidal Ideation Suicidal Ideation: No - Homicidal Ideation Homicidal Ideation: No Goal/Treatment Plan - Goal/Treatment Plan Need for Continued Stay: Severe functional impairment Progress Toward Problem(s) and Goals/Treatment Plan: Dementia with behavioral disturbances, now improved; patient is at his baseline of functioning and is psychiatrically stable for referral for [facility] placement. -Continue Depakote; VPA 40.2 on 11/27/17 -Continue Klonopin and Risperdal -Individual and group therapy -Medicine consult -Case discussed w/ patient's -Disposition planning Estimated Date of D/C: 12/13/17
[2017-12-10] MEDS: Divalproex 125 mg Sprinkle Capsule PO SCH ×2 (12:31→21:11)
[2017-12-11] MEDS: Insulin Lispro (humaLOG) 100 Units/ml Inj SC SCH ×4 (08:07→21:12)
--- NOTE | 2017-12-11 08:25 | PCM.PYCHPN ---
Psychiatric Progress Note - Psychiatric Progress Note Patient seen today, length of contact: Patient evaluated, chart reviewed, case discussed with team Patient Chief Complaint: Behavioral disturbances; now improved Problems Identified/Issues Discussed: No new events overnight. No 1:1 needed. Patient is at his baseline of functioning. No acute behavioral disturbance or PRN medications needed. Patient continues to have chronic deficits due to dementia. No adverse effects reported or observed at this time. Diagnostic Results: VPA 40.2 on 11/27/17 Medication Change: Yes (Stop Risperdal) Medical Record Reviewed: Yes Consults ordered or reviewed: Medicine consult Mental Status Examination - Cognitive Function Orientation: Person Memory: Impaired Attention: Poor Concentration: Poor Association: Loose Fund of Knowledge: Poor Decription of patient's judgement and insights: Chronic poor I/J due to dementia - Mood Mood: Neutral - Affect Affect: Constricted - Formal Thought Process Formal Thought Process: Loosening of associations Psychotic Thoughts and Behaviors: No AH/VH/paranoia - Suicidal Ideation Suicidal Ideation: No - Homicidal Ideation Homicidal Ideation: No Goal/Treatment Plan - Goal/Treatment Plan Need for Continued Stay: Severe functional impairment Progress Toward Problem(s) and Goals/Treatment Plan: Dementia with behavioral disturbances, now improved; patient is at his baseline of functioning and is psychiatrically stable for referral for halfway placement. -Continue Depakote; VPA 40.2 on 11/27/17 -Continue Klonopin -Stop Risperdal -Individual and group therapy -Medicine consult -Case discussed w/ patient's -Disposition planning Estimated Date of D/C: 12/13/17
[2017-12-11] MEDS: Divalproex 125 mg Sprinkle Capsule PO SCH ×2 (12:00→21:14)
[2017-12-12] MEDS: Insulin Lispro (humaLOG) 100 Units/ml Inj SC SCH ×4 (08:29→21:16)
[2017-12-12 08:33] LABS: BASO % 0.6 % (0.0-2.0); EOS # 0.5 K/uL (0.0-0.7); EOS % 6.3 % (0.0-4.0); HEMOGLOBIN 14.3 g/dL (12.0-18.0); LYMPH # 1.4 K/uL (1.0-4.3); LYMPH % 18.1 % (20.0-40.0); MEAN CELL VOLUME 91.7 fl (80.0-94.0); MEAN CORPUSCULAR HEMOGLOBIN 30.5 pg (27.0-31.0); MEAN CORPUSCULAR HGB CONC 33.2 g/dL (33.0-37.0); MEAN PLATELET VOLUME 10.1 fl (7.2-11.7); MONO % 12.7 % (0.0-10.0); NEUT # 4.8 K/uL (1.8-7.0); NEUT % 62.3 % (50.0-75.0); NRBC % 0.2 % (0.0-0.0); RBC 4.69 Mil/uL (4.40-5.90); RED CELL DISTRIBUTION WIDTH 13.3 % (11.5-14.5); WHITE BLOOD COUNT 7.7 K/uL (4.8-10.8)
--- NOTE | 2017-12-12 08:52 | PCM.PYCHPN ---
Psychiatric Progress Note - Psychiatric Progress Note Patient seen today, length of contact: Patient evaluated, chart reviewed, case discussed with team Patient Chief Complaint: Behavioral disturbances; now improved Problems Identified/Issues Discussed: No new events overnight. No 1:1 needed. Patient is at his baseline of functioning. No acute behavioral disturbance or PRN medications needed. Patient continues to have chronic deficits due to dementia. No adverse effects reported or observed at this time. Diagnostic Results: VPA 40.2 on 11/27/17 Medication Change: No Medical Record Reviewed: Yes Consults ordered or reviewed: Medicine consult Mental Status Examination - Cognitive Function Orientation: Person Memory: Impaired Attention: Poor Concentration: Poor Association: Loose Fund of Knowledge: Poor Decription of patient's judgement and insights: Chronic poor I/J due to dementia - Mood Mood: Neutral - Affect Affect: Constricted - Formal Thought Process Formal Thought Process: Loosening of associations Psychotic Thoughts and Behaviors: No AH/VH/paranoia - Suicidal Ideation Suicidal Ideation: No - Homicidal Ideation Homicidal Ideation: No Goal/Treatment Plan - Goal/Treatment Plan Need for Continued Stay: Severe functional impairment Progress Toward Problem(s) and Goals/Treatment Plan: Dementia with behavioral disturbances, now improved; patient is at his baseline of functioning and is psychiatrically stable for referral for long-term placement. -Continue Depakote; VPA 40.2 on 11/27/17 -Continue Klonopin -Individual and group therapy -Medicine consult -Case discussed w/ patient's -Disposition planning Estimated Date of D/C: 12/13/17
[2017-12-12 09:00] LABS: ALBUMIN 4.2 g/dL (3.5-5.0); BILIRUBIN,DIRECT 0.3 mg/ml (0.0-0.4); CALCIUM 10.1 mg/dL (8.4-10.2)
[2017-12-12] MEDS: Risperidone M tab 0.5MG PO PRN (10:53)
[2017-12-12] MEDS: Divalproex 125 mg Sprinkle Capsule PO SCH ×2 (13:24→21:17)
[2017-12-12] MEDS: Risperidone M tab 0.5MG PO SCH (21:17)
[2017-12-13] MEDS: Risperidone M tab 0.5MG PO PRN (02:55)
[2017-12-13] MEDS: Insulin Lispro (humaLOG) 100 Units/ml Inj SC SCH ×4 (08:15→21:16)
--- NOTE | 2017-12-13 09:48 | PCM.PYCHPN ---
Psychiatric Progress Note - Psychiatric Progress Note Patient seen today, length of contact: Patient evaluated, chart reviewed, case discussed with team Patient Chief Complaint: Behavioral disturbances; now improved Problems Identified/Issues Discussed: No new events overnight. No 1:1 needed. Patient is at his baseline of functioning. Patient continues to have chronic deficits due to dementia. No adverse effects reported or observed at this time. Diagnostic Results: VPA 40.2 on 11/27/17 Medication Change: No Medical Record Reviewed: Yes Consults ordered or reviewed: Medicine consult, Physical Therapy Mental Status Examination - Cognitive Function Orientation: Person Memory: Impaired Attention: Poor Concentration: Poor Association: Loose Fund of Knowledge: Poor Decription of patient's judgement and insights: Chronic poor I/J due to dementia - Mood Mood: Neutral - Affect Affect: Constricted - Formal Thought Process Formal Thought Process: Loosening of associations Psychotic Thoughts and Behaviors: No AH/VH/paranoia - Suicidal Ideation Suicidal Ideation: No - Homicidal Ideation Homicidal Ideation: No Goal/Treatment Plan - Goal/Treatment Plan Need for Continued Stay: Severe functional impairment Progress Toward Problem(s) and Goals/Treatment Plan: Dementia with behavioral disturbances, now improved; patient is at his baseline of functioning and is psychiatrically stable for referral for residential placement. -Continue Depakote; VPA 40.2 on 11/27/17; VPA 59.4 on 12/12/17 -Continue Klonopin and Risperdal -Individual and group therapy -Medicine consult -Case discussed w/ patient's -Disposition planning Estimated Date of D/C: 12/20/17
[2017-12-13] MEDS ORDERED: Risperidone M tab 0.5MG PO STA (11:05)
--- NOTE | 2017-12-13 12:01 | PCM.BM ---
Treatment Plan Problems - Problems identified on initial assessmt AGGRESSION Date Initiated: 11/21/17 Time Initiated: 18:08 Assessment reference: HP, PE, NA Status: Active Priority: 1 Treatment assets and liabiliti Patient Assests: good support system Patient Liabilities: medical problems, imparied memory, language/speech - Milieu Protocol Maintain good personal hygiene: every shift Encourage regular showers, every shift Remind patient to perform daily oral care, every shift Assist patient to perform ADL's Maintain personal safety: every shift Educate patient to report safety concerns to staff, every shift Monitor environment for contraband/sharps Medication safety: Monitor for expected outcome, potential side effects: every shift, Assess barriers to learning: every shift, Assess readiness for medication education: every shift Milieu Narrative: Dementia with behavioral disturbances, now improved; patient is at his baseline of functioning and is psychiatrically stable for referral for halfway placement. -Continue Depakote; VPA 40.2 on 11/27/17; VPA 59.4 on 12/12/17 -Continue Klonopin and Risperdal -Individual and group therapy -Medicine consult -Case discussed w/ patient's -Disposition planning Family Contact Family involvement: Family/SO is involved Family contact: Patient agrees to contact, Family has been contacted by patient , Telephone contact initiated by staff Family contact name: Avis - spouse & POA Family contacted how many times per week?: 2 Family contact comment: [phone] (cell). [phone] (home) - Outside Agency [facility] Care involvment: Following patient during stay, Information-sharing Agency contact name: [phone] [facility] Agency contact number: [phone] - Goals for Treatment Patient goals for treatment: Pt unable to state goal due to cognitive impairment. Discharge/Continuing Care - Education Needs Education Needs: Family Medication, Family Diagnosis/Disease Process, Family Coping Skills, Family Anger Management skills, Family Placement options, Family Community resources, Family Activities of Daily Living, Family Uses of Medical Equipment, Family Personal Hygiene/Grooming, Family Aftercare Safety Plan, Patient Medication, Patient Diagnosis/Disease Process, Patient Coping Skills, Patient Anger Management skills, Patient Placement options, Patient Community resources, Patient Activities of Daily Living, Patient Uses of Medical Equipment , Patient Personal Hygiene/Grooming, Patient Aftercare Safety Plan - Discharge Discharge Criteria: Tolerates medication w/o severe side effects, Free of agitation, Normal sleep pattern, Ability to care for self, Reduction of target symptoms Discharge to:: Long Term - Additional Comments 11/22/17 15:10 Pt discussed in team meeting. Pt refused to attend team meeting. Pt has a POA, Spouse (Avis). Pt's reason for hospitalization reviewed and discussed. Pt's medications reviewed. Pt's social and medical issues reviewed. Tx plan reviewed. Spouse to be contacted for collateral information. Tx plan reviewed. SW to continue to follow case. - Treatment Team Participation Patient/Family/SO Statement: Dementia with behavioral disturbances, now improved; patient is at his baseline of functioning and is psychiatrically stable for referral for halfway placement. -Continue Depakote; VPA 40.2 on 11/27/17; VPA 59.4 on 12/12/17 -Continue Klonopin and Risperdal -Individual and group therapy -Medicine consult -Case discussed w/ patient's -Disposition planning Discussed with Family/SO: No Was Patient/Family/SO present at Treatment Team Meeting: Yes Treatment Plan Review - Problem AGGRESSION Time Initiated: 18:08 - Discharge / Continuing Care Discharge to:: Long Term Behavioral Health Services: Other (Pt not oriented and has POA so unable to participate in team. Pt is still awaiting necessary paperwork so he can be transferred to [facility]. )
[2017-12-13] MEDS: Divalproex 125 mg Sprinkle Capsule PO SCH ×2 (12:13→21:15)
[2017-12-13 19:24] LABS: HEMOGLOBIN 12.9 g/dL (12.0-18.0); MEAN CELL VOLUME 92.2 fl (80.0-94.0); MEAN CORPUSCULAR HGB CONC 33.6 g/dL (33.0-37.0); RBC 4.16 Mil/uL (4.40-5.90); RED CELL DISTRIBUTION WIDTH 13.1 % (11.5-14.5); WHITE BLOOD COUNT 9.1 K/uL (4.8-10.8)
[2017-12-13] MEDS: Risperidone M tab 0.5MG PO SCH (21:15)
[2017-12-14] MEDS: Insulin Lispro (humaLOG) 100 Units/ml Inj SC SCH ×4 (08:42→22:00)
--- NOTE | 2017-12-14 11:46 | US ---
PROCEDURE: Bilateral lower extremity venous duplex Doppler. HISTORY: leg pain r/o DVT COMPARISON: None available. TECHNIQUE: Bilateral common femoral, superficial femoral, popliteal and posterior tibial veins were evaluated. Flow was assessed with color Doppler, compressibility, assessment of phasic flow and augmentation response. FINDINGS: COMMON FEMORAL VEIN: Right CFV: Unremarkable. Left CFV: Unremarkable. SUPERFICIAL FEMORAL VEIN: Right SFV: Unremarkable. Left SFV: Unremarkable. POPLITEAL VEIN: Right Popliteal: Unremarkable. Left Popliteal: Unremarkable. POSTERIOR TIBIAL VEIN: Right PTV: Unremarkable. Left PTV: Unremarkable. OTHER FINDINGS: None. IMPRESSION: No evidence of deep venous thrombosis.
[2017-12-14] MEDS: Divalproex 125 mg Sprinkle Capsule PO SCH ×2 (13:40→21:57)
[2017-12-14 18:18] LABS: BLOOD UREA NITROGEN 49 mg/dl (9-20); CALCIUM 9.5 mg/dL (8.4-10.2); GFR AFRICAN-AMERICAN > 60; GFR NON-AFRICAN AMERICAN 59; URIC ACID 8.2 mg/Dl (3.5-8.5)
--- NOTE | 2017-12-14 18:40 | PCM.PYCHPN ---
Psychiatric Progress Note - Psychiatric Progress Note Patient seen today, length of contact: Patient evaluated, chart reviewed, case discussed with team Patient Chief Complaint: seen in room, requires total care, irritable at times , total care Problems Identified/Issues Discussed: alteration in cognition alteration in safety Medical Problems: per chart, pt seen by hospitalist Diagnostic Results: per psychiatry' per medicine per nursing per social work per chart DSM 5 Symptoms Update: irritable cognitive changes Medication Change: No Medical Record Reviewed: Yes Consults ordered or reviewed: per hospitalist Mental Status Examination - Cognitive Function Orientation: Person Memory: Impaired Attention: Poor Concentration: Poor Association: Loose Fund of Knowledge: Poor Decription of patient's judgement and insights: poor - Mood Mood: Neutral - Affect Affect: Constricted - Formal Thought Process Formal Thought Process: Loosening of associations - Suicidal Ideation Suicidal Ideation: No - Homicidal Ideation Homicidal Ideation: No Goal/Treatment Plan - Goal/Treatment Plan Need for Continued Stay: Severe functional impairment Progress Toward Problem(s) and Goals/Treatment Plan: inpt milieu vital signs and clinical observation per protocol and per status adjust meds per status 1 to 1 for safety discharge planning in progress Estimated Date of D/C: 12/20/17 If changed, why: defers
[2017-12-14] MEDS: Risperidone M tab 0.5MG PO SCH (21:58)
[2017-12-15] MEDS: Insulin Lispro (humaLOG) 100 Units/ml Inj SC SCH ×4 (08:46→21:23)
--- NOTE | 2017-12-15 12:51 | PCM.PYCHPN ---
Psychiatric Progress Note - Psychiatric Progress Note Patient seen today, length of contact: Patient evaluated, chart reviewed, case discussed with team Patient Chief Complaint: seen in room, requires total care, irritable at times , total care, pt reports to staff hx of pain left foot prior to adm. reportedly has had decubitus in past (not current), required prn medication (ibuprofin), into visit pt. Problems Identified/Issues Discussed: alteration in cognition alteration in safety pain left foot (podiatry) Medical Problems: per chart, pt seen by hospitalist Diagnostic Results: per psychiatry' per medicine per nursing per social work per chart DSM 5 Symptoms Update: behavior cognitive status ?possible baseline Medication Change: No Medical Record Reviewed: Yes Consults ordered or reviewed: pt seen by hospitalist, podiatry electronic drafter [phone] contacted advised to contact vascular service- hospitalist called by staff to obtain input Mental Status Examination - Cognitive Function Orientation: Person Memory: Impaired Attention: Poor Concentration: Poor Association: Loose Fund of Knowledge: Poor Decription of patient's judgement and insights: poor - Mood Mood: Neutral - Affect Affect: Constricted Additional comments: when offered assistance and or stimulated can become somewhat irritable then returns to rest - Formal Thought Process Formal Thought Process: Loosening of associations - Suicidal Ideation Suicidal Ideation: No - Homicidal Ideation Homicidal Ideation: No Goal/Treatment Plan - Goal/Treatment Plan Need for Continued Stay: Severe functional impairment Progress Toward Problem(s) and Goals/Treatment Plan: inpt milieu vital signs and clinical observation per protocol and per status adjust meds per status 1 to 1 for safety repeat urinalysis(previous bacteria ) repeat cbc-diff (rbc's decreased) spoke with with podiatry resident electronic drafter [phone] was advised to order vascular consult-hospitalist to be notified by staff discharge planning in progress Estimated Date of D/C: 12/20/17 - Smoking Cessation Smoking Cessation Initiated: No Reason for not providing: family pt defers
[2017-12-15] MEDS: Divalproex 125 mg Sprinkle Capsule PO SCH ×2 (13:41→21:22)
[2017-12-15] MEDS: Risperidone M tab 0.5MG PO SCH (21:22)
[2017-12-16 03:00] LABS: SQUAMOUS EPITHIAL 4 /hpf (0-5); URINE BILIRUBIN NEGATIVE (NEGATIVE); URINE BLOOD NEGATIVE (NEGATIVE); URINE CLARITY SLIGHTY-CLOUDY (Clear); URINE COLOR YELLOW (YELLOW); URINE GLUCOSE (UA) >=500 mg/dL (Normal); URINE LEUKOCYTE ESTERASE TRACE Leu/uL (Negative); URINE PROTEIN 100 mg/dL (NEGATIVE); URINE UROBILINOGEN 0.2-1.0 mg/dL (0.2-1.0)
[2017-12-16 06:21] LABS: HEMOGLOBIN 12.8 g/dL (12.0-18.0); MEAN CELL VOLUME 92.1 fl (80.0-94.0); MEAN CORPUSCULAR HEMOGLOBIN 31.1 pg (27.0-31.0); MEAN CORPUSCULAR HGB CONC 33.7 g/dL (33.0-37.0); RBC 4.12 Mil/uL (4.40-5.90); RED CELL DISTRIBUTION WIDTH 13.4 % (11.5-14.5)
[2017-12-16 06:31] LABS: CALCIUM 9.5 mg/dL (8.4-10.2)
[2017-12-16] MEDS: Insulin Lispro (humaLOG) 100 Units/ml Inj SC SCH ×4 (08:34→21:27)
--- NOTE | 2017-12-16 08:56 | PCM.PYCHPN ---
Psychiatric Progress Note - Psychiatric Progress Note Patient seen today, length of contact: Patient evaluated, chart reviewed, case discussed with team Patient Chief Complaint: Behavioral disturbances; now improved Problems Identified/Issues Discussed: Patient is at his baseline of functioning. Patient continues to have chronic deficits due to dementia. No adverse effects reported or observed at this time. Diagnostic Results: VPA 40.2 on 11/27/17; VPA 59.4 on 12/12/17 Medication Change: No Medical Record Reviewed: Yes Consults ordered or reviewed: Medicine consult, Physical Therapy Mental Status Examination - Cognitive Function Orientation: Person Memory: Impaired Attention: Poor Concentration: Poor Association: Loose Fund of Knowledge: Poor Decription of patient's judgement and insights: Chronic poor I/J due to dementia - Mood Mood: Neutral - Affect Affect: Constricted - Formal Thought Process Formal Thought Process: Loosening of associations Psychotic Thoughts and Behaviors: NO AH/VH/paranoia - Suicidal Ideation Suicidal Ideation: No - Homicidal Ideation Homicidal Ideation: No Goal/Treatment Plan - Goal/Treatment Plan Need for Continued Stay: Severe functional impairment Progress Toward Problem(s) and Goals/Treatment Plan: Dementia with behavioral disturbances, now improved; patient is at his baseline of functioning and is psychiatrically stable for referral for prison placement. -Continue Depakote; VPA 40.2 on 11/27/17; VPA 59.4 on 12/12/17 -Continue Klonopin and Risperdal -Individual and group therapy -Medicine consult -Case discussed w/ patient's -Disposition planning Estimated Date of D/C: 12/20/17
[2017-12-16] MEDS: Risperidone M tab 0.5MG PO PRN (09:30)
[2017-12-16] MEDS: Divalproex 125 mg Sprinkle Capsule PO SCH ×2 (12:27→21:28)
--- NOTE | 2017-12-16 13:47 | CP.PCM.CON ---
History of Present Illness - History of Present Illness History of Present Illness: Podiatry Consult Note: Dr. Carroll 77 year old male with PMHx of DM, HTN, dementia, CABG s/p CAD was seen and evaluated at bedside in psych for pain in his right foot, particularly the great toe. Patient is a poor historian and does not respond to the questions asked properly. Unable to obtain information from the patient. Review of Systems - Constitutional Constitutional: As Per HPI Past Patient History - Tetanus Immunizations Tetanus Immunization: Unknown - Past Medical History & Family History Past Medical History?: Yes - Past Social History Smoking Status: Never Smoked Chewing Tobacco Use: No Cigar Use: No Alcohol: None Home Situation {Lives}: With Family Domestic Violence: Negative - CARDIAC Hx Cardiac Disorders: No Hx Hypertension: Yes - PULMONARY Hx Respiratory Disorders: No Hx Tuberculosis: No - NEUROLOGICAL Hx Neurological Disorder: Yes HX Cerebrovascular Accident: No Hx Dementia: Yes Hx Seizures: No - HEENT Hx HEENT Problems: No - RENAL Hx Chronic Kidney Disease: No - ENDOCRINE/METABOLIC Hx Diabetes Mellitus Type 2: Yes - HEMATOLOGICAL/ONCOLOGICAL Hx Blood Disorders: No Hx Cancer: No Hx Human Immunodeficiency Virus (HIV): No - INTEGUMENTARY Hx Dermatological Problems: No - MUSCULOSKELETAL/RHEUMATOLOGICAL Hx Musculoskeletal Disorders: No Hx Falls: No - GASTROINTESTINAL Hx Gastrointestinal Disorders: No - GENITOURINARY/GYNECOLOGICAL Hx Genitourinary Disorders: No Hx Sexually Transmitted Disorders: No - PSYCHIATRIC Hx Substance Use: No - SURGICAL HISTORY Hx Surgeries: Yes Other/Comment: Open heart surgery - ANESTHESIA Hx Anesthesia: Yes Hx Anesthesia Reactions: No Meds Home Medications: Home Medication List Medication Instructions Recorded Confirmed Type Divalproex [Depakote Sprinkles] 500 mg PO DAILY@1300 capsule 12/09/17 Rx Divalproex [Depakote Sprinkles] 625 mg PO HS capsule 12/09/17 Rx Docusate [Colace LIQUID] 200 mg PO DAILY udc 12/09/17 Rx Donepezil [Aricept] 5 mg PO HS tab 12/09/17 Rx Losartan [Cozaar] 100 mg PO DAILY tab 12/09/17 Rx Memantine [Namenda] 10 mg PO BID tab 12/09/17 Rx clonazePAM [Klonopin] 0.5 mg PO HS tab 12/09/17 Rx hydroCHLOROthiazide [Hydrodiuril] 25 mg PO DAILY tab 12/09/17 Rx risperiDONE [RisperDAL Tab] 0.5 mg PO HS tab 12/09/17 Rx Allergies/Adverse Reactions: Allergies Allergy/AdvReac Type Severity Reaction Status Date / Time No Known Allergies Allergy Verified 07/11/14 08:21 - Medications Medications: Current Medications Acetaminophen (Tylenol 325mg Tab) 650 mg PO Q4 PRN PRN Reason: Pain, moderate (4-7) Last Admin: 12/13/17 23:01 Dose: 650 mg Al Hydrox/Mg Hydrox/Simethicone (Maalox Plus 30 Ml) 30 ml PO Q4 PRN PRN Reason: Dyspepsia Aspirin (Ecotrin) 81 mg PO DAILY [facility] Last Admin: 12/16/17 08:34 Dose: 81 mg Atorvastatin Calcium (Lipitor) 10 mg PO [facility] Last Admin: 12/15/17 21:23 Dose: 10 mg Clonazepam (Klonopin) 0.5 mg PO [facility] Last Admin: 12/15/17 21:23 Dose: 0.5 mg Divalproex Sodium (Depakote Sprinkles) 500 mg PO DAILY@1300 [facility] Last Admin: 12/16/17 12:27 Dose: 500 mg Divalproex Sodium (Depakote Sprinkles) 500 mg PO [facility] Last Admin: 12/15/17 21:22 Dose: 500 mg Donepezil HCl (Aricept) 5 mg PO [facility] Last Admin: 12/15/17 21:23 Dose: 5 mg Glipizide (Glucotrol) 5 mg PO BID [facility] Last Admin: 12/16/17 08:33 Dose: 5 mg Hydrochlorothiazide (Hydrodiuril) 25 mg PO DAILY [facility] Last Admin: 12/16/17 08:34 Dose: 25 mg Ibuprofen (Motrin Oral Susp) 400 mg PO Q6 PRN PRN Reason: pain 1-7 Last Admin: 12/16/17 05:16 Dose: 400 mg Insulin Human Lispro (Humalog) 0 units SC [facility] PRN Reason: Protocol Last Admin: 12/16/17 12:26 Dose: 1 u Lorazepam (Ativan) 0.5 mg PO Q4 PRN PRN Reason: Agitation Last Admin: 12/16/17 09:30 Dose: 0.5 mg Lorazepam (Ativan) 0.5 mg IM Q6 PRN PRN Reason: Anxiety Last Admin: 11/30/17 00:45 Dose: 0.5 mg Losartan Potassium (Cozaar) 100 mg PO DAILY [facility] Last Admin: 12/16/17 08:35 Dose: 100 mg Magnesium Hydroxide (Milk Of Magnesia) 30 ml PO HS PRN PRN Reason: Constipation Memantine (Namenda) 10 mg PO BID [facility] Last Admin: 12/16/17 08:33 Dose: 10 mg Risperidone (Risperdal M-Tab) 0.5 mg PO Q12 PRN PRN Reason: Agitation Last Admin: 12/16/17 09:30 Dose: 0.5 mg Risperidone (Risperdal M-Tab) 0.5 mg PO HS [facility] Last Admin: 12/15/17 21:22 Dose: 0.5 mg Physical Exam - Constitutional Appears: Well, Non-toxic, No Acute Distress - Extremities Exam Additional comments: Bilateral LE exam: VASC: DP pulses are very faintly palpable 1/4 b/l, PT pulses are non-palpable, Cap refill time: delayed >3 sec to all digits, TEmp gradient: warm to cool to cold from leg to midfoot to digits, no pitting or non-pitting edema noted b/l DERM: mild hyperemic erythema noted on the R foot compared to the left foot, no open lesions, nails are mycotic, no clinical suspicion of active infection NEURO: Protective sensation mildly diminished ORTHO: Pain on palpation of the distal tip of the hallux on the right, no pain during PROM of the hallux on the right, no pain during AROM or PROM at the ankle joint - Neurological Exam Neurological exam: Alert - Psychiatric Exam Psychiatric exam: Normal Affect, Normal Mood Results - Vital Signs Recent Vital Signs: Last Vital Signs Temp 97.5 F L 12/16/17 06:00 Pulse 85 12/16/17 08:35 Resp 19 12/16/17 06:00 BP 140/71 12/16/17 08:35 Pulse Ox 19 L 12/07/17 06:00 - Labs Result Diagrams: 12/16/17 05:45 12/16/17 05:45 Labs: Laboratory Results - last 24 hr 12/15/17 12/15/17 12/15/17 11:53 15:32 19:52 WBC RBC Hgb Hct MCV MCH MCHC RDW Plt Count Sodium Potassium Chloride Carbon Dioxide Anion Gap BUN Creatinine Est GFR ( Amer) Est GFR (Non-Af Amer) POC Glucose (mg/dL) 177 H 84 333 H Random Glucose Calcium Urine Color Urine Clarity Urine pH Ur Specific [place] Urine Protein Urine Glucose (UA) Urine Ketones Urine Blood Urine Nitrate Urine Bilirubin Urine Urobilinogen Ur Leukocyte Esterase Urine Microscopic WBC Ur Squamous Epith Cells Hyaline Casts Stool Occult Blood 12/16/17 12/16/17 12/16/17 02:04 04:55 05:12 WBC RBC Hgb Hct MCV MCH MCHC RDW Plt Count Sodium Potassium Chloride Carbon Dioxide Anion Gap BUN Creatinine Est GFR ( Amer) Est GFR (Non-Af Amer) POC Glucose (mg/dL) 120 H Random Glucose Calcium Urine Color Yellow Urine Clarity Slighty-cloudy Urine pH 6.0 Ur Specific [place] 1.025 Urine Protein 100 Urine Glucose (UA) >=500 Urine Ketones Trace Urine Blood Negative Urine Nitrate Negative Urine Bilirubin Negative Urine Urobilinogen 0.2-1.0 Ur Leukocyte Esterase Trace Urine Microscopic WBC 11 H Ur Squamous Epith Cells 4 Hyaline Casts 3-5 H Stool Occult Blood Negative 12/16/17 12/16/17 12/16/17 05:45 05:45 12:25 WBC 8.0 RBC 4.12 L Hgb 12.8 Hct 38.0 MCV 92.1 MCH 31.1 H MCHC 33.7 RDW 13.4 Plt Count 217 Sodium 144 Potassium 5.2 H Chloride 102 Carbon Dioxide 30 Anion Gap 17 BUN 43 H Creatinine 1.4 Est GFR ( Amer) 60 Est GFR (Non-Af Amer) 49 POC Glucose (mg/dL) 184 H Random Glucose 173 H Calcium 9.5 Urine Color Urine Clarity Urine pH Ur Specific [place] Urine Protein Urine Glucose (UA) Urine Ketones Urine Blood Urine Nitrate Urine Bilirubin Urine Urobilinogen Ur Leukocyte Esterase Urine Microscopic WBC Ur Squamous Epith Cells Hyaline Casts Stool Occult Blood Assessment & Plan - Assessment and Plan (Free Text) Assessment: 77 year old male evaluated for ischemic pain to lower extremity due to peripheral arterial disease vs. venous congestion Plan: Patient seen and evaluated Discussed patient in details with attending Dr. Carroll Labs, vitals and charts reviewed Right foot x-rays ordered Physical exam demonstrates the pain most likely secondary to ischemia/calcified vessels Recommend patient to have warm compresses to LE Recommend possibly starting the patient on pletal Apply lidocaine gel across ankle joint PRN pain Possible vascular consult Thank you for the podiatry consult and allowing to take part in patient care Podiatry will monitor patient - Date & Time Date: 12/16/17 Time: 09:00
[2017-12-16] MEDS ORDERED: Lidocaine 2% GEL TOP ONE (14:18)
[2017-12-16] MEDS ORDERED: Lidocaine 2% GEL TOP PRN (14:32)
[2017-12-16] MEDS: Risperidone M tab 0.5MG PO SCH (21:28)
[2017-12-16] MEDS ORDERED: Sod Polystyrene Sulf 15 gm/60 ml Susp PO ONE (22:30)
[2017-12-17] MEDS: Insulin Lispro (humaLOG) 100 Units/ml Inj SC SCH ×4 (08:03→21:51)
--- NOTE | 2017-12-17 08:34 | PCM.PYCHPN ---
Psychiatric Progress Note - Psychiatric Progress Note Patient seen today, length of contact: Patient evaluated, chart reviewed, case discussed with team Patient Chief Complaint: Behavioral disturbances; now improved Problems Identified/Issues Discussed: Patient is at his baseline of functioning. Patient continues to have chronic deficits due to dementia. No adverse effects reported or observed at this time. Diagnostic Results: VPA 40.2 on 11/27/17; VPA 59.4 on 12/12/17 Medication Change: No Medical Record Reviewed: Yes Consults ordered or reviewed: Medicine consult, Physical Therapy, Podiatry Consult Mental Status Examination - Cognitive Function Orientation: Person Memory: Impaired Attention: Poor Concentration: Poor Association: Loose Fund of Knowledge: Poor Decription of patient's judgement and insights: Chronic poor I/J due to dementia - Mood Mood: Neutral - Affect Affect: Constricted - Formal Thought Process Formal Thought Process: Loosening of associations Psychotic Thoughts and Behaviors: NO AH/VH/paranoia - Suicidal Ideation Suicidal Ideation: No - Homicidal Ideation Homicidal Ideation: No Goal/Treatment Plan - Goal/Treatment Plan Need for Continued Stay: Severe functional impairment Progress Toward Problem(s) and Goals/Treatment Plan: Dementia with behavioral disturbances, now improved; patient is at his baseline of functioning and is psychiatrically stable for referral for intermediate placement. -Continue Depakote; VPA 40.2 on 11/27/17; VPA 59.4 on 12/12/17 -Continue Klonopin and Risperdal -Individual and group therapy -Medicine consult -Podiatry consult -Case discussed w/ patient's -Disposition planning Estimated Date of D/C: 12/20/17
[2017-12-17] MEDS: Risperidone M tab 0.5MG PO PRN (10:40)
[2017-12-17] MEDS: Divalproex 125 mg Sprinkle Capsule PO SCH ×2 (13:34→21:51)
--- NOTE | 2017-12-17 18:49 | RAD ---
PROCEDURE: Right Foot Radiographs. HISTORY: right hallux pain COMPARISON: None. FINDINGS: BONES: No definite fractures. JOINTS: Multiple hammertoe deformities. SOFT TISSUES: Normal. OTHER FINDINGS: None. IMPRESSION: No acute findings related to/accounting for the clinical presentation.
[2017-12-17] MEDS: Risperidone M tab 0.5MG PO SCH (21:52)
[2017-12-18 05:30] VITALS: BP 142/60; PULSE 84; RESP 20; TEMP 97.2
[2017-12-18] MEDS: Risperidone M tab 0.5MG PO PRN (06:37)
[2017-12-18] MEDS: Insulin Lispro (humaLOG) 100 Units/ml Inj SC SCH ×2 (08:08→12:57)
--- NOTE | 2017-12-18 08:39 | PCM.PYCHPN ---
Psychiatric Progress Note - Psychiatric Progress Note Patient seen today, length of contact: Patient evaluated, chart reviewed, case discussed with team Patient Chief Complaint: Behavioral disturbances; now improved Problems Identified/Issues Discussed: Patient is at his baseline of functioning. Patient continues to have chronic deficits due to dementia. No adverse effects reported or observed at this time. Diagnostic Results: VPA 40.2 on 11/27/17; VPA 59.4 on 12/12/17 Medication Change: No Medical Record Reviewed: Yes Consults ordered or reviewed: Medicine consult, Physical Therapy, Podiatry Consult Mental Status Examination - Cognitive Function Orientation: Person Memory: Impaired Attention: Poor Concentration: Poor Association: Loose Fund of Knowledge: Poor Decription of patient's judgement and insights: Chronic poor I/J due to dementia - Mood Mood: Neutral - Affect Affect: Constricted - Formal Thought Process Formal Thought Process: Loosening of associations Psychotic Thoughts and Behaviors: NO AH/VH/paranoia - Suicidal Ideation Suicidal Ideation: No - Homicidal Ideation Homicidal Ideation: No Goal/Treatment Plan - Goal/Treatment Plan Need for Continued Stay: Severe functional impairment Progress Toward Problem(s) and Goals/Treatment Plan: Dementia with behavioral disturbances, now improved; patient is at his baseline of functioning and is psychiatrically stable for referral for longterm placement; pending placement. -Continue Depakote; VPA 40.2 on 11/27/17; VPA 59.4 on 12/12/17 -Continue Klonopin and Risperdal -Individual and group therapy -Medicine consult -Podiatry consult -Case discussed w/ patient's -Disposition planning Estimated Date of D/C: 12/20/17
--- NOTE | 2017-12-18 09:59 | PCM.PYCHDC ---
Mental Status Examination - Mental Status Examination Orientation: Person Memory: Impaired Mood: Neutral Affect: Broad Speech: Appropriate Attention: Poor Concentration: Poor Association: Loose Fund of Knowledge: Poor Formal Thought Process: Loosening of associations Description of patient's judgement and insight: Chronic poor I/J due to dementia Psychotic Thoughts and Behaviors: NO AH/VH/paranoia Suicidal Ideation: No Current Homicidal Ideation?: No Discharge Summary - Discharge Note Reason for Hospitalization: Patient is a poor historian due to cognitive impairment. History obtained from chart and patient's . HPI: 76 y/o male with a diagnosis of Dementia, BIB EMS to worsening aggressive behavior, throwing away his medications, collecting picture frames, not sleeping at night. In the ER he was acutely agitated requiring PRM medications and 4 point restraint. Gem Expert spoke with patient's Avis Rockwell [phone] / [phone], who confirmed patient's aggressive behaviors. She believes that the Seroquel he took in the past made him worse. She gave writer editor permission to modify his medications as medically and psychiatrically indicated. PMHx/PPHx: DM, HLD, CAD, Constipation, Dementia; H/o admission to [facility] ALL: NKDA SHx: Lives w/ ; no acute drug/etoh abuse Laboratory Data: Abnormal Lab Results 12/17/17 12/17/17 12/17/17 11:44 16:10 21:40 POC Glucose (mg/dL) 189 H 164 H 278 H 12/18/17 05:27 POC Glucose (mg/dL) 148 H Consultations:: List each consultation separately and include: 1. Reason for request. 2. Findings. 3. Follow-up Consultations: Medicine consult, Physical Therapy, Podiatry Consult Summary of Hospital Course include:: 1. Description of specific treatment plan utilized for patients during their course of treatmen. 2. Summarize the time- course for resolution of acute symptoms and/or regressed behaviors. 3. Describe issues identified and worked on during hospitalization. 4. Describe medication utilized. 5. Describe medical problems identified and treated. 6. Reassessment of suicide risk Summary of Hospital Course: Patient was admitted to the geriatric psychiatry unit. Individual and group therapy were provided. Psychoeducation was provided to the patient's . Patient was stabilized on Depakote 500 mg @1300/HS, Aricept 5 mg PO HS, Namenda 10 mg PO BID, Risperdal 0.5 mg PO HS and Klonopin 0.5 mg PO HS. He is currently at his baseline of functioning and is psychiatrically stable for discharge. - Diagnosis (1) Dementia with behavioral disturbance Current Visit: Yes Status: Chronic - Final Diagnosis (DSM 5) Condition upon Discharge: STABLE DSM 5: Dementia with behavioral disturbances Disposition: TRANSF TO SNF Follow-up Treatment Plan: Dementia with behavioral disturbances, now improved and at his his baseline of functioning. He is psychiatrically stable for referral for watermelon inspector placement. -Continue Depakote; VPA 40.2 on 11/27/17; VPA 59.4 on 12/12/17 -Continue Klonopin and Risperdal -Individual and group therapy -Medicine consult -Podiatry consult -Case discussed w/ patient's -Disposition planning - Smoking Cessation Smoking Cessation Medication prescribed: No Reason for not providing: Not indicated - Antipsychotic Medications Pt discharged on 2 or more routine antipsychotic medications: No
[2017-12-18] MEDS: Divalproex 125 mg Sprinkle Capsule PO SCH (12:48)
[2017-12-18] MEDS ORDERED: Risperidone M tab 0.5MG PO STA (12:54)
== END 2017-12-18 15:30 | DRG 57 ==
LOC: H.ER 01:28 → H.ERHOLD 14:45 → H.STEP 17:01
PROVIDERS: ADMIT Psychiatry & Neurology Psychiatry; ATTEND Psychiatry & Neurology Psychiatry
PROC: GZHZZZZ Group Psychotherapy (ICD-10-PCS; principal; 2017-11-22)
PROC: GZ51ZZZ Individual Psychotherapy, Behavioral (ICD-10-PCS; 2017-11-22)
DX: G30.9 Alzheimer's disease, unspecified (principal); F02.81 Dementia in other diseases classified elsewhere, unspecified severity, with behavioral disturbance; F41.9 Anxiety disorder, unspecified; I10 Essential (primary) hypertension; I25.10 Atherosclerotic heart disease of native coronary artery without angina pectoris; K59.00 Constipation, unspecified; Z79.82 Long term (current) use of aspirin; Z79.899 Other long term (current) drug therapy; Z95.1 Presence of aortocoronary bypass graft; Z79.84 Long term (current) use of oral hypoglycemic drugs; M79.674 Pain in right toe(s); E11.9 Type 2 diabetes mellitus without complications; E78.5 Hyperlipidemia, unspecified; M79.671 Pain in right foot

== ENCOUNTER 2018-01-24 14:05 | Inpatient (IN) | payer MEDICARE, MEDICAID ==
--- NOTE | 2018-01-24 14:31 | ED PDOC ---
HPI: Psych/Substance Abuse Time Seen by Provider: 01/24/18 14:30 Chief Complaint (Nursing): Psychiatric Evaluation Chief Complaint (Provider): Psychiatric Eval ED Caveat: Acuity of Condition, Dementia History/Exam Limitations: clinical condition Onset/Duration Of Symptoms: Intermittent Episodes, Persistent Current Symptoms Are (Timing): Constant Associated Symptoms: Anger, Agitation Additional History Per: EMS Additional Complaint(s): Pt presents to the ED via EMS from a nursing facility with a historical descript of anxiety and violent outbursts toward staff; pt has a pmh that includes dementia and is in an AMS upon presentation, unwilling to speak or discuss his condition. Past Medical History Reviewed: Historical Data, Nursing Documentation, Vital Signs Vital Signs: Last Vital Signs Temp 97.8 F 01/24/18 14:15 Pulse 89 01/24/18 14:15 Resp 19 01/24/18 14:15 BP 135/67 01/24/18 14:15 Pulse Ox 99 01/24/18 14:15 - Medical History PMH: Alzheimer's Disease, Dementia, HTN Denies: Diabetes, Hepatitis, HIV, Chronic Kidney Disease, Seizures, Sexually Transmitted Disease - Family History Family History: States: Unknown Family Hx - Home Medications Home Medications: Ambulatory Orders Medication Instructions Recorded Aspirin [Ecotrin] 81 mg PO DAILY 11/21/17 Atorvastatin [Lipitor] 10 mg PO HS 11/21/17 GlipiZIDE [Glucotrol] 5 mg PO BID 11/21/17 Divalproex [Depakote Sprinkles] 500 mg PO DAILY@1300 capsule 12/09/17 Docusate [Colace LIQUID] 200 mg PO DAILY udc 12/09/17 Donepezil [Aricept] 5 mg PO HS tab 12/09/17 Losartan [Cozaar] 100 mg PO DAILY tab 12/09/17 Memantine [Namenda] 10 mg PO BID tab 12/09/17 clonazePAM [Klonopin] 0.5 mg PO HS tab 12/09/17 hydroCHLOROthiazide [Hydrodiuril] 25 mg PO DAILY tab 12/09/17 risperiDONE [RisperDAL Tab] 0.5 mg PO HS tab 12/09/17 Divalproex [Depakote Sprinkles] 500 mg PO HS capsule 12/18/17 Ibuprofen Susp [Motrin Oral Susp] 400 mg PO Q6 PRN udc 12/18/17 Lidocaine 2% [Xylocaine 2%] 1 applic TOP PRN PRN tube 12/18/17 Risperidone [Risperdal M-TAB] 0.5 mg PO HS odt 12/18/17 Risperidone [Risperdal M-TAB] 0.5 mg PO Q12 PRN odt 12/18/17 - Allergies Allergies/Adverse Reactions: Allergies Allergy/AdvReac Type Severity Reaction Status Date / Time No Known Allergies Allergy Verified 07/11/14 08:21 Review of Systems ROS Statement: Except As Marked, All Systems Reviewed And Found Negative Neurological: Positive for: Altered Mental Status Physical Exam - Reviewed Vital Signs Reviewed: Yes - Physical Exam Appears: Positive for: Uncomfortable Head Exam: Positive for: ATRAUMATIC, NORMAL INSPECTION Skin: Positive for: Normal Color, Warm Cardiovascular/Chest: Positive for: Regular Rate, Rhythm, Chest Non Tender. Negative for: Edema, Bradycardia, Tachycardia Respiratory: Positive for: Normal Breath Sounds. Negative for: Decreased Breath Sounds, Crackles, Rales, Rhonchi, Stridor, Wheezing, Respiratory Distress Pulses-Carotid (L): 2+ Pulses-Carotid (R): 2+ Pulses-Radial (L): 2+ Pulses-Radial (R): 2+ Gastrointestinal/Abdominal: Positive for: Normal Exam, Bowel Sounds - Laboratory Results Result Diagrams: 01/24/18 14:48 01/24/18 14:48 - ECG ECG: Positive for: Interpreted By Me Interpretation Of Abn EKG: aged infarct Rate: 66 O2 Sat by Pulse Oximetry: 99 Pulse Ox Interpretation: Normal - Radiology X-Ray: Read By Radiologist X-Ray Interpretation: No Acute Disease Medical Decision Making Medical Decision Making: Medical clearance and discussion with crisis upon medical clearance, pt will be admitted for Dementia under service of Dr Alejandro Disposition - Clinical Impression Clinical Impression: Dementia - Patient ED Disposition Is Patient to be Admitted: Yes Discussed With : Raul Alejandro Doctor Will See Patient In The: Hospital Counseled Patient/Family Regarding: Diagnosis - Disposition Disposition Time: 15:22 Condition: STABLE - Pt Status Changed To: Hospital Disposition Of: Inpatient - Admit Certification Admit to Inpatient:: After my assessment, the patient will require hospitalization for at least two midnights. This is because of the severity of symptoms shown, intensity of services needed, and/or the medical risk in this patient being treated as an outpatient.
--- NOTE | 2018-01-24 15:01 | RAD ---
PROCEDURE: CHEST RADIOGRAPH, 1 VIEW HISTORY: admit COMPARISON: 11/21/2017. FINDINGS: LUNGS: The lungs are well inflated and clear. PLEURA: No pneumothorax or pleural fluid seen. CARDIOVASCULAR: The heart is normal in size. Status post CABG. OSSEOUS STRUCTURES: No significant abnormalities. VISUALIZED UPPER ABDOMEN: Normal. OTHER FINDINGS: None. IMPRESSION: No active pulmonary disease.
[2018-01-24 15:10] LABS: BASO % 0.4 % (0.0-2.0); EOS # 0.2 K/uL (0.0-0.7); EOS % 3.5 % (0.0-4.0); HEMOGLOBIN 11.2 g/dL (12.0-18.0); LYMPH # 1.3 K/uL (1.0-4.3); MEAN CELL VOLUME 92.5 fl (80.0-94.0); MEAN CORPUSCULAR HEMOGLOBIN 30.5 pg (27.0-31.0); MEAN PLATELET VOLUME 8.9 fl (7.2-11.7); MONO # 0.7 K/uL (0.0-0.8); MONO % 12.3 % (0.0-10.0); NEUT # 3.5 K/uL (1.8-7.0); NEUT % 60.8 % (50.0-75.0); RBC 3.67 Mil/uL (4.40-5.90); RED CELL DISTRIBUTION WIDTH 14.5 % (11.5-14.5); WHITE BLOOD COUNT 5.8 K/uL (4.8-10.8)
[2018-01-24 16:06] LABS: ALB/GLOB RATIO 1.1 (1.0-2.1); ALBUMIN 3.6 g/dL (3.5-5.0); ALT/SGPT 19 U/L (21-72); AST/SGOT 19 U/L (17-59); BLOOD UREA NITROGEN 29 mg/dl (9-20); GFR AFRICAN-AMERICAN > 60; GFR NON-AFRICAN AMERICAN 59
[2018-01-24 16:07] LABS: ACETAMINOPHEN < 10.0 ug/ml (10.0-30.0); SALICYLATE < 1.0 mg/dl
[2018-01-24 21:05] VITALS: O2SAT 100
[2018-01-24] MEDS ORDERED: Alum-Mag Hydrox-Simethicone Susp (30 mL) PO PRN (23:05)
[2018-01-24] MEDS ORDERED: Bismuth Subsalicylate 262 mg/15 ml Sus (240 ml) PO PRN (23:05)
[2018-01-24] MEDS ORDERED: Magnesium Hydroxide Susp 30 ml UD PO PRN (23:05)
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
[2018-01-25] MEDS: Insulin Lispro (humaLOG) 100 Units/ml Inj SC SCH ×4 (08:50→21:06)
[2018-01-25] MEDS: Multivitamin With Minerals Tab PO SCH (08:51)
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
--- NOTE | 2018-01-25 12:57 | CARD ---
APPROVED REPORT EKG Measurement Heart [id number] CT [id number] [id number] <Conclusion> Normal sinus rhythm with sinus arrhythmia Possible Inferior infarct, age undetermined Abnormal ECG
[2018-01-25 15:38] LABS: IRON 122 ug/dL (49-181)
[2018-01-25 15:48] LABS: % IRON SATURATION 39 % (20-55); TOTAL IRON BINDING CAPACITY 311 ug/dL (250-450)
[2018-01-25 15:56] LABS: T4 5.72 ug/dl (5.5-11.0)
[2018-01-25 16:14] LABS: FERRITIN 61.7 ng/Ml (17.9-464)
[2018-01-26] MEDS: Insulin Lispro (humaLOG) 100 Units/ml Inj SC SCH ×4 (09:28→21:15)
[2018-01-26] MEDS: Multivitamin With Minerals Tab PO SCH (09:34)
--- NOTE | 2018-01-26 21:56 | PCM.PYCHPN ---
Psychiatric Progress Note - Psychiatric Progress Note Patient seen today, length of contact: pt seen and evaluated Patient Chief Complaint: pt has remained internally preoccupied and disorganized and intermittently agitated in evening due to sundowning due to severe advanced dementia.pt is disoriented and confused and remains with poor insight and poor judgement and need further stabilization. Problems Identified/Issues Discussed: dementia with behavioral disturbances Medication Change: Yes (will restart depakote and risperdal ) Medical Record Reviewed: Yes Mental Status Examination - Cognitive Function Attention: Poor Concentration: Poor Association: Loose Fund of Knowledge: Poor - Mood Mood: Other - Speech Speech: Appropriate - Formal Thought Process Formal Thought Process: Other - Suicidal Ideation Suicidal Ideation: No - Homicidal Ideation Homicidal Ideation: No Goal/Treatment Plan - Goal/Treatment Plan Progress Toward Problem(s) and Goals/Treatment Plan: will titrate meds to stabilize dementia and the who is the POA who has consented to restart pt on depakote 500 mg hs and risperdal 0.5 mg hs and will check valproic acid level to titrate the dose. will use prn meds for agitation. medical consult with hospitalist.
[2018-01-26] MEDS ORDERED: Divalproex 500 mg DR(BID formulation) PO SCH (22:18)
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
[2018-01-27 08:03] LABS: BASO % 0.5 % (0.0-2.0); EOS # 0.2 K/uL (0.0-0.7); EOS % 3.2 % (0.0-4.0); LYMPH # 1.3 K/uL (1.0-4.3); LYMPH % 18.2 % (20.0-40.0); MEAN CELL VOLUME 91.4 fl (80.0-94.0); MEAN CORPUSCULAR HGB CONC 33.9 g/dL (33.0-37.0); MEAN PLATELET VOLUME 8.6 fl (7.2-11.7); MONO % 14.8 % (0.0-10.0); NEUT # 4.4 K/uL (1.8-7.0); NEUT % 63.3 % (50.0-75.0); NRBC % 0.1 % (0.0-0.0); RBC 3.55 Mil/uL (4.40-5.90); RED CELL DISTRIBUTION WIDTH 14.3 % (11.5-14.5); WHITE BLOOD COUNT 6.9 K/uL (4.8-10.8)
[2018-01-27] MEDS: Insulin Lispro (humaLOG) 100 Units/ml Inj SC SCH ×4 (09:18→21:37)
[2018-01-27] MEDS: Multivitamin With Minerals Tab PO SCH (09:19)
[2018-01-27] MEDS: Divalproex 125 mg Sprinkle Capsule PO SCH ×2 (13:28→21:34)
--- NOTE | 2018-01-27 17:49 | US ---
PROCEDURE: Bilateral lower extremity venous duplex Doppler. HISTORY: LE redness and swelling COMPARISON: Lower extremity venous ultrasound dated 12/13/2017. TECHNIQUE: Bilateral common femoral, superficial femoral, popliteal and posterior tibial veins were evaluated. Flow was assessed with color Doppler, compressibility, assessment of phasic flow and augmentation response. FINDINGS: COMMON FEMORAL VEIN: Right CFV: Unremarkable. Left CFV: Unremarkable. SUPERFICIAL FEMORAL VEIN: Right SFV: Unremarkable. Left SFV: Unremarkable. POPLITEAL VEIN: Right Popliteal: Unremarkable. Left Popliteal: Unremarkable. POSTERIOR TIBIAL VEIN: Right PTV: Unremarkable. Left PTV: Unremarkable. OTHER FINDINGS: None. IMPRESSION: No evidence of deep venous thrombosis.
[2018-01-28 02:23] LABS: URINE BILIRUBIN NEGATIVE (NEGATIVE); URINE BLOOD NEGATIVE (NEGATIVE); URINE CLARITY CLEAR (Clear); URINE COLOR YELLOW (YELLOW); URINE GLUCOSE (UA) NEG (Normal); URINE LEUKOCYTE ESTERASE NEG Leu/uL (Negative); URINE PROTEIN 30 mg/dL (NEGATIVE); URINE UROBILINOGEN 0.2-1.0 mg/dL (0.2-1.0)
--- NOTE | 2018-01-28 08:33 | PCM.PYCHPN ---
Psychiatric Progress Note - Psychiatric Progress Note Patient seen today, length of contact: Patient evaluated, case discussed with team, chart reviewed Patient Chief Complaint: Patient was less labile and more redirectable yesterday. He continues to have chronic poor insight/judgment and poor impulse control. He continues to need monitoring. Slept 5 hour last night, which is an improvement from previous nights. He eats w/ staff encouragement. Diagnostic Results: VPA 33.6 on 01/27/18 Medication Change: No Medical Record Reviewed: Yes Consults ordered or reviewed: Medicine consult Mental Status Examination - Cognitive Function Orientation: Person Memory: Impaired Attention: Poor Concentration: Poor Association: Loose Fund of Knowledge: Poor Decription of patient's judgement and insights: Chronic poor I/J due to dementia - Mood Mood: Neutral - Affect Affect: Constricted - Speech Speech: Appropriate - Formal Thought Process Formal Thought Process: Loosening of associations Psychotic Thoughts and Behaviors: NO AH/VH/paranoia - Suicidal Ideation Suicidal Ideation: No - Homicidal Ideation Homicidal Ideation: No Goal/Treatment Plan - Goal/Treatment Plan Need for Continued Stay: Remain at risks for inpatient hospitalization, Discharge may exacerbated symptoms, Severe functional impairment Progress Toward Problem(s) and Goals/Treatment Plan: Dementia with behavioral disturbances -Psychoeducation -Obtain collateral from and discuss disposition -Individual and group therapy -1:1 for safety -Continue Depakote 500 mg PO Daily@1300/HS; VPA 33.6 on 01/27/18 -Continue Risperdal 0.5 mg PO HS -Medicine consult; currently being treated for a UTI -Disposition planning -Continue Aricept and Namenda Estimated Date of D/C: 02/03/18
[2018-01-28] MEDS: Insulin Lispro (humaLOG) 100 Units/ml Inj SC SCH ×4 (08:53→21:38)
[2018-01-28] MEDS: Multivitamin With Minerals Tab PO SCH (11:28)
[2018-01-28] MEDS: Divalproex 125 mg Sprinkle Capsule PO SCH ×2 (14:17→21:05)
--- NOTE | 2018-01-29 07:01 | PCM.PYCHPN ---
Psychiatric Progress Note - Psychiatric Progress Note Patient seen today, length of contact: Patient evaluated, case discussed with team, chart reviewed Patient Chief Complaint: Patient had poor sleep last night (approx 2 hrs). He has not been violent or aggressive, but needs monitoring and redirection. He continues to have chronic poor insight/judgment and poor impulse control. He eats w/ staff encouragement. Diagnostic Results: VPA 33.6 on 01/27/18 Medication Change: No Medical Record Reviewed: Yes Consults ordered or reviewed: Medicine consult Mental Status Examination - Cognitive Function Orientation: Person Memory: Impaired Attention: Poor Concentration: Poor Association: Loose Fund of Knowledge: Poor Decription of patient's judgement and insights: Chronic poor I/J due to dementia - Mood Mood: Neutral - Affect Affect: Constricted - Speech Speech: Appropriate - Formal Thought Process Formal Thought Process: Loosening of associations Psychotic Thoughts and Behaviors: NO AH/VH/paranoia - Suicidal Ideation Suicidal Ideation: No - Homicidal Ideation Homicidal Ideation: No Goal/Treatment Plan - Goal/Treatment Plan Need for Continued Stay: Remain at risks for inpatient hospitalization, Discharge may exacerbated symptoms, Severe functional impairment Progress Toward Problem(s) and Goals/Treatment Plan: Dementia with behavioral disturbances -Psychoeducation -Obtain collateral from and discuss disposition -Individual and group therapy -1:1 for safety -Continue Depakote 500 mg PO Daily@1300/HS; VPA 33.6 on 01/27/18 -Continue Risperdal 0.5 mg PO HS -Medicine consult; currently being treated for a UTI -Disposition planning -Continue Aricept and Namenda Estimated Date of D/C: 02/03/18
[2018-01-29] MEDS: Insulin Lispro (humaLOG) 100 Units/ml Inj SC SCH ×4 (08:36→21:06)
[2018-01-29] MEDS: Multivitamin With Minerals Tab PO SCH (08:40)
[2018-01-29] MEDS: Divalproex 125 mg Sprinkle Capsule PO SCH ×2 (12:16→21:05)
--- NOTE | 2018-01-30 08:28 | PCM.PYCHPN ---
Psychiatric Progress Note - Psychiatric Progress Note Patient seen today, length of contact: Patient evaluated, case discussed with team, chart reviewed Patient Chief Complaint: Patient continues to have sleep disturbances. A + O x 1. He has not been violent or aggressive, but needs monitoring and redirection. He continues to have chronic poor insight/judgment and poor impulse control. He eats w/ staff encouragement. Diagnostic Results: VPA 33.6 on 01/27/18 Medication Change: Yes (Start Klonopin 0.5 mg PO HS) Medical Record Reviewed: Yes Consults ordered or reviewed: Medicine consult Mental Status Examination - Cognitive Function Orientation: Person Memory: Impaired Attention: Poor Concentration: Poor Association: Loose Fund of Knowledge: Poor Decription of patient's judgement and insights: Chronic poor I/J due to dementia - Mood Mood: Neutral - Affect Affect: Constricted - Speech Speech: Appropriate - Formal Thought Process Formal Thought Process: Loosening of associations Psychotic Thoughts and Behaviors: NO AH/VH/paranoia - Suicidal Ideation Suicidal Ideation: No - Homicidal Ideation Homicidal Ideation: No Goal/Treatment Plan - Goal/Treatment Plan Need for Continued Stay: Remain at risks for inpatient hospitalization, Discharge may exacerbated symptoms, Severe functional impairment Progress Toward Problem(s) and Goals/Treatment Plan: Dementia with behavioral disturbances -Psychoeducation -Case discussed w/ patient's -Individual and group therapy -1:1 for safety -Continue Depakote 500 mg PO Daily@1300/HS; VPA 33.6 on 01/27/18 -Continue Risperdal 0.5 mg PO HS -Start Klonopin 0.5 mg PO HS -Medicine consult; currently completing tx for UTI; repeat urine culture negative -Disposition planning -Continue Aricept and Namenda Estimated Date of D/C: 02/03/18
[2018-01-30] MEDS: Divalproex 125 mg Sprinkle Capsule PO SCH ×2 (12:26→21:22)
[2018-01-30] MEDS: Insulin Lispro (humaLOG) 100 Units/ml Inj SC SCH ×4 (12:28→21:25)
[2018-01-30] MEDS: Multivitamin With Minerals Tab PO SCH (12:30)
--- NOTE | 2018-01-31 09:53 | PCM.PYCHPN ---
Psychiatric Progress Note - Psychiatric Progress Note Patient seen today, length of contact: Patient evaluated, case discussed with team, chart reviewed Patient Chief Complaint: Behavioral disturbances Problems Identified/Issues Discussed: No significant events overnight. A + O x 1. He has not been violent or aggressive, but needs monitoring and redirection. He continues to have chronic poor insight/judgment and poor impulse control. +Continues sleep disturbances. He eats w/ staff encouragement. Diagnostic Results: VPA 33.6 on 01/27/18 Medication Change: No Medical Record Reviewed: Yes Consults ordered or reviewed: Medicine consult Mental Status Examination - Cognitive Function Orientation: Person Memory: Impaired Attention: Poor Concentration: Poor Association: Loose Fund of Knowledge: Poor Decription of patient's judgement and insights: Chronic poor I/J due to dementia - Mood Mood: Neutral - Affect Affect: Constricted - Speech Speech: Appropriate - Formal Thought Process Formal Thought Process: Loosening of associations Psychotic Thoughts and Behaviors: NO AH/VH/paranoia - Suicidal Ideation Suicidal Ideation: No - Homicidal Ideation Homicidal Ideation: No Goal/Treatment Plan - Goal/Treatment Plan Need for Continued Stay: Remain at risks for inpatient hospitalization, Discharge may exacerbated symptoms, Severe functional impairment Progress Toward Problem(s) and Goals/Treatment Plan: Dementia with behavioral disturbances -Psychoeducation -Case discussed w/ patient's -Individual and group therapy -1:1 for safety -Continue Depakote 500 mg PO Daily@1300/HS; VPA 33.6 on 01/27/18 -Continue Risperdal 0.5 mg PO HS -Continue Klonopin 0.5 mg PO HS -Medicine consult; completed tx for UTI; repeat urine culture negative -Disposition planning -Continue Aricept and Namenda Estimated Date of D/C: 02/04/18
[2018-01-31] MEDS: Divalproex 125 mg Sprinkle Capsule PO SCH ×2 (12:37→21:04)
[2018-01-31] MEDS: Insulin Lispro (humaLOG) 100 Units/ml Inj SC SCH ×4 (12:40→21:08)
[2018-01-31] MEDS: Multivitamin With Minerals Tab PO SCH (12:44)
[2018-02-01] MEDS: Insulin Lispro (humaLOG) 100 Units/ml Inj SC SCH ×4 (07:37→21:02)
[2018-02-01] MEDS: Multivitamin With Minerals Tab PO SCH (08:38)
--- NOTE | 2018-02-01 09:34 | PCM.PYCHPN ---
Psychiatric Progress Note - Psychiatric Progress Note Patient seen today, length of contact: Patient evaluated, case discussed with team, chart reviewed Patient Chief Complaint: Behavioral disturbances; now improving Problems Identified/Issues Discussed: No significant events. A + O x 1. He has not been violent or aggressive, but needs monitoring and redirection. He continues to have chronic poor insight/ judgment and poor impulse control. He has improved sleep. Diagnostic Results: VPA 33.6 on 01/27/18 Medication Change: No Medical Record Reviewed: Yes Consults ordered or reviewed: Medicine consult Mental Status Examination - Cognitive Function Orientation: Person Memory: Impaired Attention: Poor Concentration: Poor Association: Loose Fund of Knowledge: Poor Decription of patient's judgement and insights: Chronic poor I/J due to dementia - Mood Mood: Neutral - Affect Affect: Constricted - Speech Speech: Appropriate - Formal Thought Process Formal Thought Process: Loosening of associations Psychotic Thoughts and Behaviors: NO AH/VH/paranoia - Suicidal Ideation Suicidal Ideation: No - Homicidal Ideation Homicidal Ideation: No Goal/Treatment Plan - Goal/Treatment Plan Need for Continued Stay: Severe functional impairment Progress Toward Problem(s) and Goals/Treatment Plan: Dementia with behavioral disturbances -Psychoeducation -Case discussed w/ patient's -Individual and group therapy -1:1 for safety -Continue Depakote 500 mg PO Daily@1300/HS; VPA 33.6 on 01/27/18 -Continue Risperdal 0.5 mg PO HS -Continue Klonopin 0.5 mg PO HS -Medicine consult; completed tx for UTI; repeat urine culture negative -Disposition planning -Continue Aricept and Namenda Estimated Date of D/C: 02/04/18
[2018-02-01] MEDS: Divalproex 125 mg Sprinkle Capsule PO SCH ×2 (12:12→21:01)
--- NOTE | 2018-02-02 06:38 | PCM.PYCHPN ---
Psychiatric Progress Note - Psychiatric Progress Note Patient seen today, length of contact: Patient evaluated, case discussed with team, chart reviewed Patient Chief Complaint: Behavioral disturbances; now improving Problems Identified/Issues Discussed: No significant events. A + O x 1. No episodes of violence or aggresssion. Patient is approaching his baseline of functioning. He continues to have chronic poor insight/judgment due to dementia. He has improved sleep. Diagnostic Results: VPA 33.6 on 01/27/18 Medication Change: No Medical Record Reviewed: Yes Consults ordered or reviewed: Medicine consult Mental Status Examination - Cognitive Function Orientation: Person Memory: Impaired Attention: Poor Concentration: Poor Association: Loose Fund of Knowledge: Poor Decription of patient's judgement and insights: Chronic poor I/J due to dementia - Mood Mood: Neutral - Affect Affect: Constricted - Speech Speech: Appropriate - Formal Thought Process Formal Thought Process: Loosening of associations Psychotic Thoughts and Behaviors: NO AH/VH/paranoia - Suicidal Ideation Suicidal Ideation: No - Homicidal Ideation Homicidal Ideation: No Goal/Treatment Plan - Goal/Treatment Plan Need for Continued Stay: Severe functional impairment Progress Toward Problem(s) and Goals/Treatment Plan: Dementia with behavioral disturbances; patient is improving clinically -Psychoeducation -Case discussed w/ patient's -Individual and group therapy -Continue Depakote 500 mg PO Daily@1300/HS; VPA 33.6 on 01/27/18 -Continue Risperdal 0.5 mg PO HS -Continue Klonopin 0.5 mg PO HS -Medicine consult; completed tx for UTI; repeat urine culture negative -Continue Aricept and Namenda -Disposition planning Estimated Date of D/C: 02/04/18
[2018-02-02] MEDS: Insulin Lispro (humaLOG) 100 Units/ml Inj SC SCH ×4 (08:43→21:05)
[2018-02-02] MEDS: Multivitamin With Minerals Tab PO SCH (08:45)
[2018-02-02 10:09] LABS: BASO % 0.6 % (0.0-2.0); EOS # 0.3 K/uL (0.0-0.7); HEMOGLOBIN 11.9 g/dL (12.0-18.0); LYMPH # 1.3 K/uL (1.0-4.3); LYMPH % 19.9 % (20.0-40.0); MEAN CELL VOLUME 91.2 fl (80.0-94.0); MEAN CORPUSCULAR HEMOGLOBIN 31.1 pg (27.0-31.0); MEAN CORPUSCULAR HGB CONC 34.1 g/dL (33.0-37.0); MEAN PLATELET VOLUME 9.6 fl (7.2-11.7); MONO % 15.1 % (0.0-10.0); NEUT # 3.9 K/uL (1.8-7.0); NEUT % 60.4 % (50.0-75.0); NRBC % 0.1 % (0.0-0.0); RBC 3.82 Mil/uL (4.40-5.90); WHITE BLOOD COUNT 6.5 K/uL (4.8-10.8)
[2018-02-02 10:30] LABS: ALB/GLOB RATIO 1.1 (1.0-2.1); ALBUMIN 3.7 g/dL (3.5-5.0); ALT/SGPT 34 U/L (21-72); AST/SGOT 29 U/L (17-59); BLOOD UREA NITROGEN 26 mg/dl (9-20); CALCIUM 9.3 mg/dL (8.4-10.2); GFR AFRICAN-AMERICAN > 60; GFR NON-AFRICAN AMERICAN 54
[2018-02-02] MEDS: Divalproex 125 mg Sprinkle Capsule PO SCH ×2 (12:40→21:04)
[2018-02-02 16:12] VITALS: RESP 20
--- NOTE | 2018-02-03 08:30 | PCM.PYCHPN ---
Psychiatric Progress Note - Psychiatric Progress Note Patient seen today, length of contact: Patient evaluated, case discussed with team, chart reviewed Patient Chief Complaint: Behavioral disturbances; now improved Problems Identified/Issues Discussed: No significant events over the weekend. A + O x 1. No episodes of violence or aggresssion. Patient is at his baseline of functioning. No 1:1 indicated at this time. Diagnostic Results: VPA 33.6 on 01/27/18; VPA 50.1 on 02/02/18 Medication Change: No Medical Record Reviewed: Yes Consults ordered or reviewed: Medicine consult Mental Status Examination - Cognitive Function Orientation: Person Memory: Impaired Attention: Poor Concentration: Poor Association: Loose Fund of Knowledge: Poor Decription of patient's judgement and insights: Chronic poor I/J due to dementia - Mood Mood: Neutral - Affect Affect: Broad - Speech Speech: Appropriate - Formal Thought Process Formal Thought Process: Loosening of associations Psychotic Thoughts and Behaviors: NO AH/VH/paranoia - Suicidal Ideation Suicidal Ideation: No - Homicidal Ideation Homicidal Ideation: No Goal/Treatment Plan - Goal/Treatment Plan Need for Continued Stay: Severe functional impairment Progress Toward Problem(s) and Goals/Treatment Plan: Dementia with behavioral disturbances; patient is improving clinically -Psychoeducation -Case discussed w/ patient's -Individual and group therapy -Continue Depakote 500 mg PO Daily@1300/HS; VPA 33.6 on 01/27/18; VPA 50.1 on -Continue Risperdal 0.5 mg PO HS -Continue Klonopin 0.5 mg PO HS -Medicine consult; completed tx for UTI; repeat urine culture negative -Continue Aricept and Namenda -Discontinue 1:1; patient is at his baseline of functioning -Disposition planning Estimated Date of D/C: 02/04/18
[2018-02-03] MEDS: Insulin Lispro (humaLOG) 100 Units/ml Inj SC SCH ×4 (08:36→21:27)
[2018-02-03] MEDS: Multivitamin With Minerals Tab PO SCH (08:36)
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
[2018-02-03] MEDS: Divalproex 125 mg Sprinkle Capsule PO SCH ×2 (13:11→21:06)
[2018-02-04 06:33] VITALS: BP 149/91; PULSE 94; TEMP 97.3
--- NOTE | 2018-02-04 08:05 | PCM.PYCHPN ---
Psychiatric Progress Note - Psychiatric Progress Note Patient seen today, length of contact: Patient evaluated, case discussed with team, chart reviewed Patient Chief Complaint: Behavioral disturbances; now improved Problems Identified/Issues Discussed: No significant events. A + O x 1. No episodes of violence or aggression. Patient is at his baseline of functioning. Diagnostic Results: VPA 33.6 on 01/27/18; VPA 50.1 on 02/02/18 Medication Change: No Medical Record Reviewed: Yes Consults ordered or reviewed: Medicine consult Mental Status Examination - Cognitive Function Orientation: Person Memory: Impaired Attention: Poor Concentration: Poor Association: Loose Fund of Knowledge: Poor Decription of patient's judgement and insights: Chronic poor I/J due to dementia - Mood Mood: Neutral - Affect Affect: Broad - Speech Speech: Appropriate - Formal Thought Process Formal Thought Process: Loosening of associations Psychotic Thoughts and Behaviors: NO AH/VH/paranoia - Suicidal Ideation Suicidal Ideation: No - Homicidal Ideation Homicidal Ideation: No Goal/Treatment Plan - Goal/Treatment Plan Need for Continued Stay: Severe functional impairment Progress Toward Problem(s) and Goals/Treatment Plan: Dementia with behavioral disturbances; patient is improving clinically -Psychoeducation -Case discussed w/ patient's -Individual and group therapy -Continue Depakote 500 mg PO Daily@1300/HS; VPA 33.6 on 01/27/18; VPA 50.1 on -Continue Risperdal 0.5 mg PO HS -Continue Klonopin 0.5 mg PO HS -Medicine consult; completed tx for UTI; repeat urine culture negative -Continue Aricept and Namenda -Disposition planning Estimated Date of D/C: 02/05/18
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
[2018-02-04] MEDS: Insulin Lispro (humaLOG) 100 Units/ml Inj SC SCH (10:04)
[2018-02-04] MEDS: Multivitamin With Minerals Tab PO SCH (10:12)
== END 2018-02-04 13:40 | DRG 57 ==
LOC: H.ER 14:05 → H.ERHOLD 16:09 → H.STEP 23:03
PROVIDERS: ADMIT Psychiatry & Neurology Psychiatry; ATTEND Psychiatry & Neurology Psychiatry
PROC: GZHZZZZ Group Psychotherapy (ICD-10-PCS; principal; 2018-01-24)
PROC: GZ58ZZZ Individual Psychotherapy, Cognitive-Behavioral (ICD-10-PCS; 2018-01-24)
DX: G30.9 Alzheimer's disease, unspecified (principal); F02.81 Dementia in other diseases classified elsewhere, unspecified severity, with behavioral disturbance; N39.0 Urinary tract infection, site not specified; F05 Delirium due to known physiological condition; I25.10 Atherosclerotic heart disease of native coronary artery without angina pectoris; E11.9 Type 2 diabetes mellitus without complications; I10 Essential (primary) hypertension; E78.5 Hyperlipidemia, unspecified; Z95.1 Presence of aortocoronary bypass graft; Z79.82 Long term (current) use of aspirin; Z79.84 Long term (current) use of oral hypoglycemic drugs